=== PATIENT | male | born 1960 | race Caucasian/White ===

== ENCOUNTER 2017-07-25 22:47 | Inpatient (IN) | payer OTHER ==
[~2017-07-25] VITALS: Ht 177.8 cm; Wt 77.8 kg
[2017-07-26 01:00] VITALS: BP 119/76; PULSE 76; RESP 19
[2017-07-26 01:21] VITALS: Ht 177.8 cm; Wt 77.8 kg
[2017-07-26] MEDS ORDERED: ONDANSETRON 4 MG INJ IV PRN (02:30)
[2017-07-26] MEDS ORDERED: LORAZEPAM 2 MG INJ IV PRN ×2 (02:30)
[2017-07-26 02:39] VITALS: BP 119/76; RESP 18
[2017-07-26] MEDS: morphine 4 MG/ML VIAL IV PRN ×6 (02:42→23:49)
[2017-07-26] MEDS: DEXTROSE 5%-0.45% NACL 1,000 ML IV SCH ×4 (02:45→20:38)
[2017-07-26] MEDS: HYDROCODONE/APAP (5/325) TAB PO PRN ×2 (05:32→17:42)
[2017-07-26 05:47] LABS: BASOPHILS % 0.7 % (0.0-2.0); EOSINOPHILS # 0.3 10^3/ul (0.0-0.5); EOSINOPHILS % 4.1 % (0.0-7.0); HEMATOCRIT 38.1 % (42.0-52.0); HEMOGLOBIN 13.5 g/dl (14.0-18.0); LYMPHOCYTES % 32.5 % (15.0-51.0); MEAN CORPUSCULAR HEMOGLOBIN 33.7 pg (29.0-33.0); MEAN CORPUSCULAR HGB CONC 35.4 g/dl (32.0-37.0); MEAN PLATELET VOLUME 8.8 fl (7.4-10.4); MONOCYTE # 0.4 10^3/ul (0.3-0.9); MONOCYTES % 6.1 % (0.0-11.0); NEUTROPHIL # 3.5 10^3/ul (1.6-7.5); NEUTROPHILS % 56.4 % (39.0-77.0); PLATELET COUNT 101 10^3/UL (140-415); RED BLOOD COUNT 4.01 10^6/ul (4.70-6.10); RED CELL DISTRIBUTION WIDTH 12.1 % (11.5-14.5); WHITE BLOOD COUNT 6.1 10^3/ul (4.8-10.8)
--- NOTE | 2017-07-26 06:18 | HP ---
Date/Time of Note Date/Time of Note DATE: 07/26/17 TIME: 06:12 Assessment/Plan VTE Prophylaxis VTE Prophylaxis Intervention: SCD's Lines/Catheters IV Catheter Type (from Nrs): Saline Lock Assessment/Plan Assessment/Plan 1. Alcoholic pancreatitis -N.p.o. with IV fluid -Pain management -Check labs in am 2. History of alcohol abuse -Advised about abstinence -Social work consult to help with abstinence HPI/ROS Admit Date/Time Admit Date/Time Jul 26, 2017 at 01:15 Hx of Present Illness This is a 57-year-old male with a history of alcohol abuse who initially presented to [facility] complaining of abdominal pain. Patient was transferred to [facility] because of insurance reason. Patient has a history of alcohol abuse and he has been drinking almost on a daily basis. Last drink was 2 weeks ago, which mainly consisted of vodka. Abdominal pain is diffuse but mainly localized in the periumbilical area. At [facility], his blood alcohol level was elevated and had elevated lipase as well. PMH/Family/Social Social History Smoking Status: Current every day smoker Exam/Review of Systems Vital Signs Vitals Vital Signs Date Time Temp Pulse Resp B/P Pulse Ox O2 Delivery O2 Flow Rate FiO2 07/26/17 02:39 98.1 66 18 119/76 97 07/26/17 01:00 Room Air Exam Constitutional: alert, oriented, well developed Head: atraumatic, normocephalic Eyes: EOMI, PERRL Respiratory: clear to auscultation, normal air movement Cardiovascular: nl pulses, regular rate and rhythm Gastrointestinal: soft, tender Extremities: normal pulses Medications Medications Current Medications Multivitamins 10 ml/Thiamine HCl 100 mg/Folic Acid 1 mg/Sodium Chloride 1,011.2 ml @ 125 mls/ hr DAILY@09 IVPB ; Start 07/26/17 at 09:00 Dextrose/Sodium Chloride (D5-1/2ns) 1,000 ml @ 125 mls/hr Q8H IV Last administered on 07/26/17t 02:45; Admin Dose 125 MLS/HR; Start 07/26/17 at 02:30 Chlordiazepoxide (Librium) 75 mg TID PO ; Start 07/26/17 at 09:00 Lorazepam (Ativan) 2 mg Q1H PRN IV CONTROL WITHDRAWAL SYMPTOMS; Start 07/26/17 at 02:30 Lorazepam (Ativan) 1 mg Q3H PRN IV ANXIETY; Start 07/26/17 at 02:30 Ondansetron HCl (Zofran Inj) 4 mg Q6H PRN IV NAUSEA AND/OR VOMITING Last administered on 07/26/17 02:42; Admin Dose 4 MG; Start 07/26/17 at 02:30 Morphine Sulfate (morphine) 3 mg Q4H PRN IV PAIN Last administered on 02:42; Admin Dose 3 MG; Start 07/26/17 at 02:30 Acetaminophen/ Hydrocodone Bitart ([place] (5/325)) 1 tab Q6H PRN PO PAIN Last administered on 07/26/17 05:32; Admin Dose 1 TAB; Start 07/26/17 at 02:30 LA GONZALEZ MD Jul 26, 2017 06:18
[2017-07-26 06:37] LABS: ALBUMIN 3.8 g/dl (3.3-4.9); ALBUMIN/GLOBULIN RATIO 1.4; BILIRUBIN,INDIRECT 1.3 mg/dl (0-1.1); BILIRUBIN,TOTAL 1.3 mg/dl (0.2-1.3); CALCIUM 8.6 mg/dl (8.4-10.2); CREATININE 0.73 mg/dl (0.61-1.24); MAGNESIUM 1.8 mg/dl (1.7-2.5); PHOSPHORUS 3.5 mg/dl (2.5-4.9); POTASSIUM 3.5 mmol/L (3.5-5.1); TOTAL PROTEIN 6.5 g/dl (6.1-8.1)
[2017-07-26 07:48] VITALS: BP 153/88; RESP 18
[2017-07-26] MEDS: CHLORDIAZEPOXIDE 25 MG CAP PO SCH ×3 (08:33→20:38)
[2017-07-26] MEDS: MULTIVITAMINS 10 ML, THIAMINE 100 MG, FOLIC ACID 1 MG in SOD CHLORIDE 0.9% 1,000 ML IVPB SCH (11:01)
[2017-07-26 14:00] VITALS: BP 133/86; RESP 18
[2017-07-26 20:26] VITALS: BP 140/81; RESP 20
[2017-07-26 21:40] VITALS: BP 164/84; PULSE 119; RESP 20
[2017-07-27 02:53] VITALS: BP 135/81; RESP 18
[2017-07-27] MEDS: DEXTROSE 5%-0.45% NACL 1,000 ML IV SCH ×2 (05:01→17:39)
[2017-07-27] MEDS: morphine 4 MG/ML VIAL IV PRN ×4 (05:07→20:00)
[2017-07-27 06:25] LABS: ABNORMAL IP MESSAGE 1; BASOPHILS % 0.4 % (0.0-2.0); EOSINOPHILS # 0.2 10^3/ul (0.0-0.5); HEMATOCRIT 38.5 % (42.0-52.0); LYMPHOCYTES # 1.2 10^3/ul (0.8-2.9); LYMPHOCYTES % 24.4 % (15.0-51.0); MEAN CORPUSCULAR HEMOGLOBIN 34.6 pg (29.0-33.0); MEAN CORPUSCULAR HGB CONC 36.4 g/dl (32.0-37.0); MEAN CORPUSCULAR VOLUME 95.1 fl (82.0-101.0); MEAN PLATELET VOLUME 9.1 fl (7.4-10.4); MONOCYTE # 0.2 10^3/ul (0.3-0.9); NEUTROPHIL # 3.1 10^3/ul (1.6-7.5); PLATELET COUNT 89 10^3/UL (140-415); POSITIVE DIFF @See below; RED BLOOD COUNT 4.05 10^6/ul (4.70-6.10); RED CELL DISTRIBUTION WIDTH 11.9 % (11.5-14.5); WHITE BLOOD COUNT 4.8 10^3/ul (4.8-10.8)
[2017-07-27 06:46] LABS: CHOL/HDL RATIO 2.5 RATIO
[2017-07-27 06:56] LABS: CALCIUM 8.9 mg/dl (8.4-10.2); CREATININE 0.67 mg/dl (0.61-1.24); POTASSIUM 3.3 mmol/L (3.5-5.1)
[2017-07-27 07:45] VITALS: BP 124/85; RESP 16
[2017-07-27] MEDS: CHLORDIAZEPOXIDE 25 MG CAP PO SCH ×3 (09:11→20:43)
[2017-07-27] MEDS ORDERED: POTASSIUM CHLORIDE 20 MEQ in SOD CHLORIDE 0.9% 100 ML IVPB ONE (11:00)
[2017-07-27] MEDS: MULTIVITAMINS 10 ML, THIAMINE 100 MG, FOLIC ACID 1 MG in SOD CHLORIDE 0.9% 1,000 ML IVPB SCH (13:43)
[2017-07-27 14:00] VITALS: BP 122/81; RESP 18
--- NOTE | 2017-07-27 15:13 | PN ---
Date/Time of Note Date/Time of Note DATE: 07/27/17 TIME: 15:12 Assessment/Plan VTE Prophylaxis VTE Prophylaxis Intervention: SCD's Lines/Catheters IV Catheter Type (from Nrsg): Peripheral IV Assessment/Plan Assessment/Plan 1. Alcoholic pancreatitis - pt wants to eat, no lipase checked today AM, will start clear lquidis and advance as tolerated Pain control with tylenol, norco, morphine 2. History of alcohol abuse -Advised about abstinence -Social work consult to help with abstinence SCD dennys DVT prophylaxis Subjective 24 Hr Interval Summary Free Text/Dictation pain hattie,r wants to eat, no lipase checked today AM Exam/Review of Systems Vital Signs Vitals Vital Signs Date Time Temp Pulse Resp B/P Pulse Ox O2 Delivery O2 Flow Rate FiO2 07/27/17 07:45 98.4 80 16 124/85 96 07/26/17 01:00 Room Air Intake and Output 07/26/17 07/26/17 07/27/17 15:00 23:00 07:00 Intake Total 625 ml 1011.2 ml 1110 ml Output Total 950 ml 1850 ml Balance 625 ml 61.2 ml -740 ml Exam Constitutional: alert, oriented, well developed Head: atraumatic, normocephalic Eyes: EOMI, PERRL Respiratory: clear to auscultation, normal air movement Cardiovascular: nl pulses, regular rate and rhythm Gastrointestinal: soft, tender Extremities: normal pulses Results Result Diagram: 07/27/17 0549 07/27/17 0549 Results 24 hrs Laboratory Tests Test 07/27/17 05:49 White Blood Count 4.8 # Red Blood Count 4.05 L Hemoglobin 14.0 Hematocrit 38.5 L Mean Corpuscular Volume 95.1 Mean Corpuscular Hemoglobin 34.6 H Mean Corpuscular Hemoglobin Concent 36.4 Red Cell Distribution Width 11.9 Platelet Count 89 L Mean Platelet Volume 9.1 Neutrophils % 65.0 Lymphocytes % 24.4 Monocytes % 5.0 Eosinophils % 5.0 Basophils % 0.4 Nucleated Red Blood Cells % 0.0 Neutrophils # 3.1 Lymphocytes # 1.2 Monocytes # 0.2 L Eosinophils # 0.2 Basophils # 0.0 Nucleated Red Blood Cells # 0.0 Sodium Level 139 Potassium Level 3.3 L Chloride Level 103 Carbon Dioxide Level 28 Anion Gap 11 Blood Urea Nitrogen 7 Creatinine 0.67 Glucose Level 94 Calcium Level 8.9 Triglycerides Level 103 Cholesterol Level 208 H LDL Cholesterol, Calculated 104 HDL Cholesterol 83 H Cholesterol/HDL Ratio 2.5 Lipase 214 Medications Medications Current Medications Multivitamins 10 ml/Thiamine HCl 100 mg/Folic Acid 1 mg/Sodium Chloride 1,011.2 ml @ 125 mls/ hr DAILY@09 IVPB Last administered on 07/27/17 13:43; Admin Dose 125 MLS/HR; Start 07/26/17 at 09:00 Dextrose/Sodium Chloride (D5-1/2ns) 1,000 ml @ 125 mls/hr Q8H IV Last administered on 07/27/17 05:01; Admin Dose 125 MLS/HR; Start 07/26/17 at 02:30 Chlordiazepoxide (Librium) 75 mg TID PO Last administered on 07/27/17 13:42; Admin Dose 75 MG; Start 07/26/17 at 09:00 Lorazepam (Ativan) 2 mg Q1H PRN IV CONTROL WITHDRAWAL SYMPTOMS; Start 07/26/17 at 02:30 Lorazepam (Ativan) 1 mg Q3H PRN IV ANXIETY; Start 07/26/17 at 02:30 Ondansetron HCl (Zofran Inj) 4 mg Q6H PRN IV NAUSEA AND/OR VOMITING Last administered on 07/26/17 02:42; Admin Dose 4 MG; Start 07/26/17 at 02:30 Morphine Sulfate (morphine) 3 mg Q4H PRN IV PAIN Last administered on 09:13; Admin Dose 3 MG; Start 07/26/17 at 02:30 Acetaminophen/ Hydrocodone Bitart ([place] (5/325)) 1 tab Q6H PRN PO PAIN Last administered on 07/26/17 17:42; Admin Dose 1 TAB; Start 07/26/17 at 02:30 JUAN F NORRIS MD Jul 27, 2017 15:13
[2017-07-27] MEDS: HYDROCODONE/APAP (5/325) TAB PO PRN (16:46)
[2017-07-27 20:54] VITALS: BP 129/78; RESP 20
[2017-07-28] MEDS ORDERED: DOCU-144 PO (11:47)
--- NOTE | 2017-07-28 11:55 | PDOCDIS ---
Discharge Instructions DIAGNOSIS Discharge Diagnosis 1. Alcoholic hepatitis 2. Alcohol abuse HOME CARE INSTRUCTIONS: Special Diet: Soft diet FOLLOW UP/APPOINTMENTS Follow-up Plan 1. Follow up with your primary care provider in one week OTHER ORDERS: Other Orders: 1. Stop alcohol consumption LAURA STINSON Jul 28, 2017 11:55
[2017-07-28] MEDS ORDERED: CIPR500T4 PO (19:08)
[2017-07-28] MEDS ORDERED: ONDA4TAB14 PO (19:08)
[2017-07-28] MEDS ORDERED: HYDR-902 PO (19:08)
[2017-07-28] MEDS ORDERED: DIPH1TAB PO (19:09)
[2017-07-28] MEDS ORDERED: CHLORDIAZEPOXIDE 25 MG CAP PO SCH (21:00)
== END 2017-07-27 22:30 | disposition left against medical advice (07) | DRG 440 ==
LOC: MS2 07-26 01:15
PROVIDERS: ADMIT Internal Medicine; ATTEND Internal Medicine
DX: K85.20 Alcohol induced acute pancreatitis without necrosis or infection (principal); I10 Essential (primary) hypertension; F17.210 Nicotine dependence, cigarettes, uncomplicated; F10.20 Alcohol dependence, uncomplicated; F41.9 Anxiety disorder, unspecified; J44.9 Chronic obstructive pulmonary disease, unspecified
CPT/HCPCS: 80048; 80053; 80061; 83036; 83690; 83735; 84100; 85025; J2270; J2405; J3411; J3480; J7030; J7042

== ENCOUNTER 2017-07-28 16:12 | Emergency (ER) | payer OTHER ==
[~2017-07-28] VITALS: Ht 172.7 cm; Wt 75.0 kg
[~2017-07-28 16:12] MED LIST: DOCU-144 PO
[2017-07-28 16:18] VITALS: Ht 172.7 cm; Wt 75.0 kg
[2017-07-28] MEDS ORDERED: ONDANSETRON 4 MG INJ IV STA ×2 (16:55→19:10)
[2017-07-28] MEDS ORDERED: SOD CHLORIDE 0.9% 1,000 ML IV STA (16:55)
[2017-07-28] MEDS ORDERED: HYDROmorphONE 1 MG/ML SYG IV STA ×2 (16:55→19:10)
[2017-07-28] MEDS ORDERED: ONDANSETRON (ODT) 4 MG TAB ODT ONE (17:08)
[2017-07-28 17:22] LABS: HEMATOCRIT 41.5 % (42.0-52.0); HEMOGLOBIN 15.3 g/dl (14.0-18.0); MEAN CORPUSCULAR HEMOGLOBIN 34.7 pg (29.0-33.0); MEAN CORPUSCULAR HGB CONC 36.9 g/dl (32.0-37.0); MEAN CORPUSCULAR VOLUME 94.1 fl (82.0-101.0); MEAN PLATELET VOLUME 9.3 fl (7.4-10.4); PLATELET COUNT 108 10^3/UL (140-415); RED BLOOD COUNT 4.41 10^6/ul (4.70-6.10); WHITE BLOOD COUNT 6.2 10^3/ul (4.8-10.8)
--- NOTE | 2017-07-28 17:26 | ERA ---
ER Documentation Chief Complaint Date/Time DATE: 07/28/17 TIME: 17:21 Chief Complaint SOB , ABDOMINAL PAIN 2 DAYS, HX OF ASTHMA HPI This is a 57-year-old male who is admitted At [facility] for alcoholic pancreatitis. The patient left AMA this morning. He said he went home and the pain got worse in his abdomen he started having vomiting and diarrhea. He actually says she has had vomiting and diarrhea for the past 2 days and has had only morphine for pain control that is not helping. He says his pain is located in the diffuse lower abdominal region more on the left. He has no bloody diarrhea or blood in his vomit. The patient says he is in so much pain that he fell and sustained a laceration to his right wrist. There is no syncope.This occurred as he was leaving AMA from the hospital this morning at [place]. They brought him back into the emergency room where he has laceration stitched and he left from there ROS All systems reviewed and are negative except as per history of present illness. Medications Home Meds Active Scripts Diphenoxylate HCl/Atropine (Lomotil 2.5-0.025 mg Tablet) 1 Each Tablet, 1 TAB PO QID Y for DIARRHEA, #10 TAB Prov:SUDHIR DINERO DO 07/28/17 Ondansetron (Ondansetron Odt) 4 Mg Tab.rapdis, 4 MG PO Q6H Y for NAUSEA AND/OR VOMITING, #10 TAB Prov:SUDHIR DINERO DO 07/28/17 Ciprofloxacin Hcl* (Ciprofloxacin Hcl*) 500 Mg Tablet, 500 MG PO BID for 7 Days , TAB Prov:SUDHIR DINERO DO 07/28/17 Hydrocodone/Acetaminophen ([place] 10-325 Tablet) 1 Each Tablet, 1 TAB PO Q6H Y for PAIN, #20 TAB Prov:SUDHIR DINERO DO 07/28/17 Discontinued Scripts Docusate Sodium* (Colace*) 100 Mg Capsule, 100 MG PO BID Y for CONSTIPATION, # 30 CAP Prov:LAURA STINSON 07/28/17 Allergies Allergies: Coded Allergies: No Known Drug Allergies (Verified Allergy, Unknown, 07/28/17) PMhx/Soc History of Surgery: No Anesthesia Reaction: No Hx Neurological Disorder: No Hx Respiratory Disorders: Yes (ASTHMA, COPD) Hx Cardiac Disorders: No Hx Psychiatric Problems: Yes (ANXIETY) Hx Miscellaneous Medical Probl: No Hx Alcohol Use: Yes Hx Substance Use: No Hx Tobacco Use: Yes FmHx Family History: No coronary disease Physical Exam Vitals Vital Signs Date Time Temp Pulse Resp B/P Pulse Ox O2 Delivery O2 Flow Rate FiO2 07/28/17 18:30 88 18 128/73 100 Room Air 07/28/17 16:18 98.9 100 20 123/73 100 Physical Exam Const: Well-developed, well-nourished Head: Atraumatic, normocephalic Eyes: Normal Conjunctiva, PERRLA, EOMI, normal sclera, no nystagmus ENT: Normal External Ears, Nose and Mouth, moist mucus membranes. Neck: Full range of motion. No meningismus, no lymphadenopathy. Resp: Clear to auscultation bilaterally, no wheezing, rhonchi, rales Cardio: Regular rate and rhythm, no murmurs, S1 S2 present Abd: Soft, bilateral lower quadrant tenderness moderate in nature non distended. Normal bowel sounds, no guarding or rebound, no pulsitile abdominal masses or bruits Skin: No petechiae or rashes, no ecchymosis , no maculopapular rash Back: No midline or flank tenderness Ext: No cyanosis, or edema, FROM x 4, normal inspection, neurovascularly intact x 4, the right wrist is a V-shaped laceration has been sutured and closed no active bleeding Neur: Awake and alert, STR 5/5 x 4, sensation intact x 4, no focal findings, cerebellum intact Psych: Normal Mood and Affect Result Diagram: 07/28/17 1700 07/28/17 1700 Results 24 hrs Laboratory Tests Test 07/28/17 17:00 White Blood Count 6.210^3/ul Red Blood Count 4.4110^6/ul Hemoglobin 15.3g/dl Hematocrit 41.5% Mean Corpuscular Volume 94.1fl Mean Corpuscular Hemoglobin 34.7pg Mean Corpuscular Hemoglobin Concent 36.9g/dl Red Cell Distribution Width 12.0% Platelet Count 81086^3/UL Mean Platelet Volume 9.3fl Neutrophils % % Lymphocytes % % Monocytes % % Eosinophils % % Basophils % % Nucleated Red Blood Cells % 0.0/100WBC Neutrophils # 10^3/ul Lymphocytes # 10^3/ul Monocytes # 10^3/ul Eosinophils # 10^3/ul Basophils # 10^3/ul Nucleated Red Blood Cells # 10^3/ul Sodium Level 139mmol/L Potassium Level 4.1mmol/L Chloride Level 103mmol/L Carbon Dioxide Level 25mmol/L Anion Gap 15 Blood Urea Nitrogen 9mg/dl Creatinine 0.70mg/dl Glucose Level 109mg/dl Calcium Level 9.8mg/dl Total Bilirubin 0.8mg/dl Direct Bilirubin 0.00mg/dl Indirect Bilirubin 0.8mg/dl Aspartate Amino Transf (AST/SGOT) 183IU/L Alanine Aminotransferase (ALT/SGPT) 122IU/L Alkaline Phosphatase 122IU/L Total Protein 7.6g/dl Albumin 4.3g/dl Globulin 3.30g/dl Albumin/Globulin Ratio 1.30 Lipase 118U/L Ethyl Alcohol Level < 10.0mg/dl Current Medications Medications (Trade) Dose Ordered Sig/Ronaldo Route PRN Reason Start Time Stop Time Status Last Admin Dose Admin Sodium Chloride (NS) 1,000 ml @ 1,000 mls/hr Q1H STAT IV 07/28/17 16:55 07/28/17 17:54 DC 07/28/17 17:35 Hydromorphone HCl (Dilaudid) 1 mg ONCE STAT IV 07/28/17 16:55 07/28/17 16:56 DC 07/28/17 17:35 Ondansetron HCl (Zofran Inj) 4 mg ONCE STAT IV 07/28/17 16:55 07/28/17 16:56 DC 07/28/17 17:35 Ondansetron HCl (Zofran Odt) 4 mg STK-MED ONCE ODT 07/28/17 17:08 07/28/17 17:09 DC Iohexol 150 ml 150 ml STK-MED ONCE .ROUTE 07/28/17 17:57 07/28/17 17:58 DC 07/28/17 18:27 Sodium Chloride (NS) 100 ml @ ud STK-MED ONCE .ROUTE 07/28/17 17:57 07/28/17 17:58 DC 07/28/17 18:27 Procedures/MDM PROCEDURE: XR Chest. CLINICAL INDICATION: Loss of consciousness, shortness of breath TECHNIQUE: Single frontal chest x-ray. COMPARISON: 07/04/2014 FINDINGS: The lungs are adequately expanded and clear. There is no focal consolidation, pleural effusion, or pneumothorax. The heart and mediastinal contours are unremarkable. Bones are unremarkable. There are no acute fractures. RPTAT: ZZ IMPRESSION: No acute cardiopulmonary abnormality. .Tuyte Monzon MD, Date Time Electronically viewed and signed by .Tuyet Monzon MD, on 07/28/2017 18: 52 .T/ CC: SUDHIR DINERO DO PROCEDURE: CT Abdomen and Pelvis with contrast. CLINICAL INDICATION: Abdominal pain with shortness of breath for 2 days TECHNIQUE: CT scan of the abdomen and pelvis with contrast was performed. The patient was scanned following the uncomplicated intravenous administration of 90 cc of Omnipaque 300. Coronal and sagittal reformatted images were obtained from the axial source images. Images were reviewed on a high- resolution PACS workstation. CTDI 837 mGy, DLP 14 mGy-cm One or more of the following dose reduction techniques were used: Automated exposure control Adjustment of the mA and/or kV according to patient size. Use of iterative reconstruction technique. COMPARISON: Several prior studies, most recent on 07/01/2014 FINDINGS: There is minimal, dependent atelectasis at the lung bases. Otherwise, the lung bases are clear, without mass or pleural effusion. The heart size is normal. The aorta and its branches are normal in size and caliber with minimal atherosclerotic calcifications. There is less prominence of the fatty infiltration of the liver compared to the prior study. There is a 1.5 cm hypodense subcapsular lesion within the inferior left lobe of liver of slightly increased attenuation which may correspond with a hemangioma. This was also seen on the prior study from 05/11/2014. The portal veins, splenic vein and superior mesenteric vein are unremarkable. The gallbladder is slightly distended although unremarkable, without cholelithiasis. The spleen, pancreas, and adrenal glands are unremarkable. The kidneys are unremarkable and demonstrate normal contrast enhancement. There are no renal calculi or hydronephrosis. The ureters are normal in course and caliber, without urolithiasis. The distal esophagus is unremarkable. The stomach is partially distended with slight wall thickening although it is partially decompressed. There is no evidence of obstruction within the gastrointestinal tract. The appendix is visualized and is normal. There is no free intraperitoneal fluid or pneumoperitoneum. No mesenteric or retroperitoneal lymphadenopathy is present. There is no pelvic lymphadenopathy. The bladder is partially distended and grossly unremarkable. The prostate is mildly prominent with a few calcifications. The seminal vesicles are unremarkable. No pelvic free fluid. There are no acute fractures. Old right posterior 10th rib fracture is noted. Multilevel mild degenerative disc disease is present within the lumbar spine. There are bilateral L5 pars defects with grade 1 anterolisthesis at L5-S1. RPTAT: ZZ IMPRESSION: 1. No acute intra-abdominal abnormality. No mass, lymphadenopathy, or focal acute inflammatory process is identified. 2. Decreased fatty infiltration of the liver. 3. Bilateral L5 pars defects with grade 1 anterolisthesis at L5-S1. .Tuyet Monzon MD, MD Date Time Electronically viewed and signed by .Tuyet Monzon MD, MD on 07/28/2017 18: 51 .T/ CC: SUDHIR DINERO DO No acute evidence of any pathology on CT scan and blood work looks good. Discharged home with nausea vomiting diarrhea control is worse pain. He may have some type of gastroenteritis or bad food exposure or risk of malingering for pain meds Departure Diagnosis: Primary Impression: Abdominal pain Qualified Code: R10.10 - Pain of upper abdomen Additional Impression: Vomiting and diarrhea Condition: Stable SUDHIR DINERO DO Jul 28, 2017 17:26
[2017-07-28 17:30] LABS: ALBUMIN 4.3 g/dl (3.3-4.9); ALBUMIN/GLOBULIN RATIO 1.3; BILIRUBIN,INDIRECT 0.8 mg/dl (0-1.1); BILIRUBIN,TOTAL 0.8 mg/dl (0.2-1.3); CALCIUM 9.8 mg/dl (8.4-10.2); CREATININE 0.7 mg/dl (0.61-1.24); POTASSIUM 4.1 mmol/L (3.5-5.1); TOTAL PROTEIN 7.6 g/dl (6.1-8.1)
[2017-07-28] MEDS ORDERED: SOD CHLORIDE 0.9% 100 ML ONE (17:57)
[2017-07-28] MEDS ORDERED: IOHEXOL 300MG/ML 150 ML BTL ONE (17:57)
[2017-07-28 18:23] LABS: POSITIVE DIFF N
--- NOTE | 2017-07-28 18:51 | RADRPT ---
PROCEDURE: CT Abdomen and Pelvis with contrast. CLINICAL INDICATION: Abdominal pain with shortness of breath for 2 days TECHNIQUE: CT scan of the abdomen and pelvis with contrast was performed. The patient was scanned following the uncomplicated intravenous administration of 90 cc of Omnipaque 300. Coronal and sagi ttal reformatted images were obtained from the axial source images. Images were reviewed on a high-r Triptrotting PACS workstation. CTDI 837 mGy, DLP 14 mGy-cm One or more of the following dose reduction techniques were used: Automated exposure control Adjustment of the mA and/or kV according to patient size. Use of iterative reconstruction technique. COMPARISON: Several prior studies, most recent on 07/01/2014 FINDINGS: There is minimal, dependent atelectasis at the lung bases. Otherwise, the lung bases are clear, with out mass or pleural effusion. The heart size is normal. The aorta and its branches are normal in size and caliber with minimal atherosclerotic calcification s. There is less prominence of the fatty infiltration of the liver compared to the prior study. There i s a 1.5 cm hypodense subcapsular lesion within the inferior left lobe of liver of slightly increased attenuation which may correspond with a hemangioma. This was also seen on the prior study from 04/14. The portal veins, splenic vein and superior mesenteric vein are unremarkable. The gallbladde r is slightly distended although unremarkable, without cholelithiasis. The spleen, pancreas, and adrenal glands are unremarkable. The kidneys are unremarkable and demonstrate normal contrast enhancement. There are no renal calcul i or hydronephrosis. The ureters are normal in course and caliber, without urolithiasis. The distal esophagus is unremarkable. The stomach is partially distended with slight wall thickenin g although it is partially decompressed. There is no evidence of obstruction within the gastrointest inal tract. The appendix is visualized and is normal. There is no free intraperitoneal fluid or pne umoperitoneum. No mesenteric or retroperitoneal lymphadenopathy is present. There is no pelvic lymphadenopathy. The bladder is partially distended and grossly unremarkable. The prostate is mildly prominent with a few calcifications. The seminal vesicles are unremarkable. No pelvic free fluid. There are no acute fractures. Old right posterior 10th rib fracture is noted. Multilevel mild degene rative disc disease is present within the lumbar spine. There are bilateral L5 pars defects with gra de 1 anterolisthesis at L5-S1. RPTAT: ZZ IMPRESSION: 1. No acute intra-abdominal abnormality. No mass, lymphadenopathy, or focal acute inflammatory pro cess is identified. 2. Decreased fatty infiltration of the liver. 3. Bilateral L5 pars defects with grade 1 anterolisthesis at L5-S1. .Tuyet Monzon MD, MD Date Time Electronically viewed and signed by .Tuyet Monzon MD, on 07/28/2017 18:51 .T/
--- NOTE | 2017-07-28 18:52 | RADRPT ---
PROCEDURE: XR Chest. CLINICAL INDICATION: Loss of consciousness, shortness of breath TECHNIQUE: Single frontal chest x-ray. COMPARISON: 07/04/2014 FINDINGS: The lungs are adequately expanded and clear. There is no focal consolidation, pleural effusion, or pneumothorax. The heart and mediastinal contours are unremarkable. Bones are unremarkable. There a re no acute fractures. RPTAT: ZZ IMPRESSION: No acute cardiopulmonary abnormality. .Tuyet Monzon MD, MD Date Time Electronically viewed and signed by .Tuyet Monzon MD, on 07/28/2017 18:52 .T/
[2017-07-28] MEDS ORDERED: CIPR500T4 PO (19:08)
[2017-07-28] MEDS ORDERED: ONDA4TAB14 PO (19:08)
[2017-07-28] MEDS ORDERED: HYDR-902 PO (19:08)
[2017-07-28] MEDS ORDERED: DIPH1TAB PO (19:09)
[2017-07-28 19:24] VITALS: BP 128/73; PULSE 89; RESP 18
== END 2017-07-28 19:28 | disposition home or self-care (01) ==
LOC: E/R 16:12
DX: R10.84 Generalized abdominal pain (principal); R11.10 Vomiting, unspecified; R19.7 Diarrhea, unspecified; J44.0 Chronic obstructive pulmonary disease with (acute) lower respiratory infection; Z87.891 Personal history of nicotine dependence
CPT/HCPCS: 36415; 71010; 74177; 80053; 80306; 83690; 85025; 96374; 96375; J1170; J2405; J7030; Q9967; Z7502; Z7610

== ENCOUNTER 2017-07-31 02:51 | Inpatient (IN) | payer OTHER ==
[~2017-07-31] VITALS: Ht 177.8 cm; Wt 81.3 kg
[2017-07-31] VITALS (10 sets, daily range): BP systolic 107–127; BP diastolic 64–78; PULSE 75–90; RESP 16–20; Ht 177.8 cm; Wt 81.3 kg
[~2017-07-31 02:51] MED LIST changes: +CIPR500T4 PO; +DIPH1TAB PO; -DOCU-144 PO; +HYDR-902 PO; +ONDA4TAB14 PO
[2017-07-31] MEDS ORDERED: SOD CHLORIDE 0.9% 1,000 ML IV SCH (04:06)
[2017-07-31] MEDS ORDERED: ONDANSETRON 4 MG INJ IV PRN (04:30)
[2017-07-31] MEDS ORDERED: VANCOMYCIN IV PER PHARMACY XX SCH (04:30)
[2017-07-31] MEDS ORDERED: NACL 0.9% 3 ML SYG IV SCH (04:30)
[2017-07-31] MEDS ORDERED: ACETAMINOPHEN 325 MG TAB PO PRN (04:30)
[2017-07-31] MEDS: CHLORDIAZEPOXIDE 25 MG CAP PO SCH ×4 (04:57→21:42)
[2017-07-31] MEDS ORDERED: VANCOMYCIN 1.5 GM in SOD CHLORIDE 0.9% 250 ML IVPB SCH (06:00)
[2017-07-31 08:24] LABS: BASOPHILS % 0.5 % (0.0-2.0); EOSINOPHILS # 0.2 10^3/ul (0.0-0.5); EOSINOPHILS % 2.8 % (0.0-7.0); HEMATOCRIT 35.2 % (42.0-52.0); HEMOGLOBIN 12.6 g/dl (14.0-18.0); LYMPHOCYTES # 1.7 10^3/ul (0.8-2.9); LYMPHOCYTES % 27.8 % (15.0-51.0); MEAN CORPUSCULAR HGB CONC 35.8 g/dl (32.0-37.0); MEAN CORPUSCULAR VOLUME 94.9 fl (82.0-101.0); MEAN PLATELET VOLUME 9.2 fl (7.4-10.4); MONOCYTE # 0.8 10^3/ul (0.3-0.9); MONOCYTES % 13.1 % (0.0-11.0); NEUTROPHIL # 3.4 10^3/ul (1.6-7.5); NEUTROPHILS % 55.6 % (39.0-77.0); PLATELET COUNT 111 10^3/UL (140-415); RED BLOOD COUNT 3.71 10^6/ul (4.70-6.10); RED CELL DISTRIBUTION WIDTH 12.5 % (11.5-14.5); WHITE BLOOD COUNT 6.1 10^3/ul (4.8-10.8)
[2017-07-31 08:48] LABS: ALANINE AMINOTRANSFERASE 93 IU/L (13-69); ALBUMIN 3.8 g/dl (3.3-4.9); ALBUMIN/GLOBULIN RATIO 1.26; ALKALINE PHOSPHATASE 98 IU/L (42-121); ANION GAP 12 (8-16); ASPARTATE AMINO TRANSFERASE 93 IU/L (15-46); BILIRUBIN,INDIRECT 0.4 mg/dl (0-1.1); BILIRUBIN,TOTAL 0.4 mg/dl (0.2-1.3); BLOOD UREA NITROGEN 10 mg/dl (7-20); CALCIUM 8.9 mg/dl (8.4-10.2); CARBON DIOXIDE 28 mmol/L (21-31); CHLORIDE 103 mmol/L (97-110); CREATININE 0.62 mg/dl (0.61-1.24); GLUCOSE 77 mg/dl (70-220); MAGNESIUM 1.9 mg/dl (1.7-2.5); POTASSIUM 3.4 mmol/L (3.5-5.1); SODIUM 140 mmol/L (135-144); TOTAL PROTEIN 6.8 g/dl (6.1-8.1)
[2017-07-31 08:54] LABS: ETHANOL < 10.0 mg/dl
[2017-07-31] MEDS ORDERED: FAMOTIDINE 20 MG INJ IV SCH (09:00)
[2017-07-31] MEDS ORDERED: MULTIVITAMINS 10 ML, THIAMINE 100 MG, FOLIC ACID 1 MG in SOD CHLORIDE 0.9% 1,000 ML IVPB SCH (09:00)
[2017-07-31] MEDS: morphine 2 MG INJ IV PRN ×4 (09:07→21:42)
--- NOTE | 2017-07-31 09:13 | HP ---
Date/Time of Note Date/Time of Note DATE: 07/31/17 TIME: 08:59 Assessment/Plan VTE Prophylaxis VTE Prophylaxis Intervention: SCD's Lines/Catheters IV Catheter Type (from [facility]): Saline Lock Urinary Cath still in place: No Assessment/Plan Chief Complaint/Hosp Course This is a 57-year-old male being admitted to the telemetry floor for: #1 alcohol withdrawal: We will check a blood alcohol level, banana bag, Librium taper, as needed Ativan. Check lipase as patient has a history of pancreatitis. #2 right upper extremity wound: Patient had a previous laceration of his right arm which was subsequently treated with sutures during previous admission. patient does report pain in the area. There does not appear to be any erythema of the area however there does appear to be some darkening of the incision which could be normal healing however will obtain wound care consult and surgery consult to further assess. Will put patient on vancomycin IV at this time. #3 BPH: Patient has a history of BPH over is currently not on any medications. Likely will consider restarting patient on Flomax and finasteride upon discharge. Will check a PSA level. #4 Behavioral disorder: Patient has history of depression and anxiety: We will need to confirm with the patient his home medications. #5 asthma: Patient reports Spiriva inhaler, will continue. #7 DVT GI prophylaxis: SCDs, acid kristan Further treatment strategy will be implemented as per the clinical course Problems: HPI/ROS Admit Date/Time Admit Date/Time Jul 31, 2017 at 03:06 Hx of Present Illness Chief complaint: Alcohol withdrawal symptoms This is a 57-year-old male being transferred from nursing facility for symptoms of alcohol withdrawal. Patient reports the last drink he had was approximately 3-4 days ago. He was experiencing some abdominal pain and nausea. Patient was admitted a few days ago in the hospital for pancreatitis, alcohol abuse. Current time patient denies any suicidal ideation or homicidal ideation. He denies any auditory or visual hallucinations. Allergies: NKDA Medications: See JAN ROS Const: As per HPI Eyes : No pain discharge or redness or change in visual acuity ENT: No pain, sore throat, congestion, congestion, dysphagia or discharge Respiratory: No shortness of breath, cough, sputum, wheezing, or pleuritic pain Cardiovascular: No chest pain, palpitation, PND, or edema GI : As per HPI Genitourinary: No dysuria, hematuria, flank pain , discharge or CVA tenderness Musculoskeletal: No joint pain, back pain, neck pain, restricted range of motion in neck or joints Skin: No rash, bruising or hives Neuro: No headache, dizziness, syncope, seizure, focal weakness Endocrine: No polyuria, polydipsia, temperature intolerance Psych: No hallucination, depression, anxiety or suicidal ideation PMH/Family/Social Past Medical History Depression, anxiety, asthma, alcohol abuse Past Surgical History Right forearm laceration repair with sutures Family History Significant Family History: no pertinent family hx Social History Alcohol Use: heavy Smoking Status: Current every day smoker (1 pack per day 40 years) Exam/Review of Systems Vital Signs Vitals Vital Signs Date Time Temp Pulse Resp B/P Pulse Ox O2 Delivery O2 Flow Rate FiO2 07/31/17 08:00 81 07/31/17 07:29 98.5 20 118/77 96 Exam Exam General: Patient is lethargic however he is easily arousable and answers questions appropriately. HEENT: Atraumatic, normocephalic. The pupils are equal, round and reactive. Extraocular motor are intact Neck: Supple with full range of motion. No rigidity or meningismus Chest: Nontender Lungs: Clear to auscultation bilaterally no crackles rales or wheezing Heart: Normal S1-S2, Regular rhythm and rate. No overt murmurs appreciated Abdomen: Soft, mild tenderness to palpation at the epigastric region. Extremities: Normal to inspection, no edema no cyanosis Neurologic: Lethargic, but easily arousable. Alert and oriented 3. Cranial nerves II through XII intact. No focal deficits on neurological exam. No homicidal suicidal ideation. Labs Result Diagram: 07/31/17 0706 07/31/17 0706 Medications Medications Current Medications Sodium Chloride (NS) 1,000 ml @ 80 mls/hr [id number] IV Last administered on 07/31t 04:57; Admin Dose 80 MLS/HR; Start 07/31/17 at 04:06 Ondansetron HCl (Zofran Inj) 4 mg Q6H PRN IV NAUSEA AND/OR VOMITING; Start at 04:30 Acetaminophen (Tylenol Tab) 650 mg Q6H PRN PO PAIN LEVEL 1-3 OR FEVER; Start at 04:30 Famotidine (Pepcid Iv) 20 mg Q12 IV ; Start 07/31/17 at 09:00 Chlordiazepoxide (Librium) 50 mg TID PO Last administered on 07/31/17 04:57; Admin Dose 50 MG; Start 07/31/17 at 05:00; Stop 08/01/17 at 04:59 Chlordiazepoxide (Librium) 25 mg QID PO ; Start 08/01/17 at 05:00; Stop at 04:59 Chlordiazepoxide 25 mg 25 mg TID PO ; Start 08/02/17 at 05:00; Stop 08/03/17 at 04:59 Multivitamins/ Thiamine HCl/ Folic Acid/Sodium Chloride (Mvi Adult/ Vitamin B1/ Folic Acid/NS) 1,011.2 ml @ 125 mls/ hr DAILY@09 IVPB ; Start 07/31/17 at 09:00 Lorazepam (Ativan) 1 mg Q2 PRN IV AGITATION/ANXIETY; Start 07/31/17 at 04:30 Morphine Sulfate 2 mg 2 mg Q4H PRN IV PAIN LEVEL 6-10; Start 07/31/17 at 04:30 Vancomycin HCl/ Sodium Chloride (Vancocin/NS) 250 ml @ 83.333 mls/ hr ONCE IVPB Last administered on 07/31/17 06:05; Admin Dose 83.333 MLS/HR; Start at 06:00; Stop 07/31/17 at 08:59 SHELBI LOPEZ Jul 31, 2017 09:11
[2017-07-31] MEDS: TIOTROPIUM 18 MCG CAPSULE INHA DEV INH SCH (13:08)
[2017-07-31] MEDS ORDERED: POTASSIUM CHLORIDE (SR) 20 MEQ TAB PO STA (13:21)
--- NOTE | 2017-07-31 13:25 | PN ---
Date/Time of Note Date/Time of Note DATE: 07/31/17 TIME: 13:21 Assessment/Plan VTE Prophylaxis VTE Prophylaxis Intervention: SCD's Lines/Catheters IV [facility] Type (from [facility] Saline Lock Urinary Cath still in place: No Assessment/Plan Assessment/Plan 57 yo M with known h/o EtOHism, previous episodes of alcoholic pancreatitis admitted for detox. PLAN cont librium taper, PRN ativan MVI/thiamine/folate check lipase, IVFs, PO as tolerated for UE wound sp suture closure, open to air. sutures do not yet appear ready for removal ss cs for EtOHism Subjective 24 Hr Interval Summary Free Text/Dictation Pt states last drink was 3-4 days ago. Denies h/o withdrawal seizures Exam/Review of Systems Vital Signs Vitals Vital Signs Date Time Temp Pulse Resp B/P Pulse Ox O2 Delivery O2 Flow Rate FiO2 07/31/17 12:00 79 07/31/17 11:19 97.8 20 107/69 96 Exam nad +RUE with 2 linear surgically stitched incisions 4 cm on forearm abd with mild epigastric ttp no mrg lungs clear no rashes labs reviewed Results Result Diagram: 07/31/17 0706 07/31/17 0706 Results 24 hrs Laboratory Tests Test 07/31/17 07:06 White Blood Count 6.1 Red Blood Count 3.71 L Hemoglobin 12.6 L Hematocrit 35.2 L Mean Corpuscular Volume 94.9 Mean Corpuscular Hemoglobin 34.0 H Mean Corpuscular Hemoglobin Concent 35.8 Red Cell Distribution Width 12.5 Platelet Count 111 L Mean Platelet Volume 9.2 Neutrophils % 55.6 Lymphocytes % 27.8 Monocytes % 13.1 H Eosinophils % 2.8 Basophils % 0.5 Nucleated Red Blood Cells % 0.0 Neutrophils # 3.4 Lymphocytes # 1.7 Monocytes # 0.8 Eosinophils # 0.2 Basophils # 0.0 Nucleated Red Blood Cells # 0.0 Sodium Level 140 Potassium Level 3.4 L Chloride Level 103 Carbon Dioxide Level 28 Anion Gap 12 Blood Urea Nitrogen 10 Creatinine 0.62 Glucose Level 77 Calcium Level 8.9 Magnesium Level 1.9 Total Bilirubin 0.4 Direct Bilirubin 0.00 Indirect Bilirubin 0.4 Aspartate Amino Transf (AST/SGOT) 93 H Alanine Aminotransferase (ALT/SGPT) 93 H Alkaline Phosphatase 98 Total Protein 6.8 Albumin 3.8 Globulin 3.00 Albumin/Globulin Ratio 1.26 Ethyl Alcohol Level < 10.0 Medications Medications Current Medications Ondansetron HCl (Zofran Inj) 4 mg Q6H PRN IV NAUSEA AND/OR VOMITING Last administered on 07/31/17 09:07; Admin Dose 4 MG; Start 07/31/17 at 04:30 Acetaminophen (Tylenol Tab) 650 mg Q6H PRN PO PAIN LEVEL 1-3 OR FEVER; Start at 04:30 Chlordiazepoxide (Librium) 50 mg TID PO Last administered on 07/31/17 13:09; Admin Dose 50 MG; Start 07/31/17 at 05:00; Stop 08/01/17 at 04:59 Chlordiazepoxide (Librium) 25 mg QID PO ; Start 08/01/17 at 05:00; Stop at 04:59 Chlordiazepoxide (Librium) 25 mg TID PO ; Start 08/02/17 at 05:00; Stop at 04:59 Lorazepam (Ativan) 1 mg Q2 PRN IV AGITATION/ANXIETY; Start 07/31/17 at 04:30 Morphine Sulfate (morphine) 2 mg Q4H PRN IV PAIN LEVEL 6-10 Last administered on 07/31/17 13:10; Admin Dose 2 MG; Start 07/31/17 at 04:30 Tiotropium [place] (Spiriva) 1 inh DAILY INH Last administered on 07/31/17 13: 08; Admin Dose 1 INH; Start 07/31/17 at 10:30 Miscellaneous Information (*Rx Drug Level Order Reminder*) VANCO TROUGH @ 1, 700 ON... ONCE ONCE XX ; Start 08/01/17 at 17:00; Stop 08/01/17 at 17:01 Acetaminophen/ Hydrocodone Bitart 1 tab 1 tab Q6H PRN PO pain; Start 07/31/17 at 13:00 Sodium Chloride (NS) 1,000 ml @ 80 mls/hr [id number] IV ; Start 07/31/17 at 13:30 ; Status ELIESER RAINEY MD Jul 31, 2017 13:25
[2017-07-31] MEDS: SOD CHLORIDE 0.9% 1,000 ML IV SCH (13:30)
[2017-07-31] MEDS: MULTIVITAMINS THERAPEUTIC TAB PO SCH (13:49)
[2017-07-31] MEDS: THIAMINE 100 MG TAB PO SCH (13:50)
[2017-07-31] MEDS: FOLIC ACID 1 MG TAB PO SCH (13:50)
[2017-07-31 14:13] LABS: CANNABINOIDS Negative (NEGATIVE)
[2017-07-31 14:15] LABS: BARBITURATES Negative (NEGATIVE); BENZODIAZEPINES Positive (NEGATIVE); COCAINE Negative (NEGATIVE); OPIATES Positive (NEGATIVE)
[2017-07-31] MEDS: LORAZEPAM 2 MG INJ IV PRN (15:00)
[2017-07-31] MEDS: HYDROCODONE/APAP (5/325) TAB PO PRN (16:38)
[2017-07-31] MEDS ORDERED: VANCOMYCIN 1.25 GM in SOD CHLORIDE 0.9% 250 ML IVPB SCH (18:00)
[2017-08-01 00:15] VITALS: PULSE 69
[2017-08-01] MEDS: HYDROCODONE/APAP (5/325) TAB PO PRN (00:20)
[2017-08-01 00:28] VITALS: BP 108/66; RESP 20
[2017-08-01] MEDS: morphine 2 MG INJ IV PRN (01:43)
[2017-08-01] MEDS: SOD CHLORIDE 0.9% 1,000 ML IV SCH ×2 (02:00→10:03)
[2017-08-01] MEDS: LORAZEPAM 2 MG INJ IV PRN (03:23)
[2017-08-01 04:17] VITALS: PULSE 86
[2017-08-01 04:23] VITALS: BP 107/64; RESP 16
[2017-08-01] MEDS: CHLORDIAZEPOXIDE 25 MG CAP PO SCH ×2 (05:09→10:03)
[2017-08-01 07:26] VITALS: BP 127/77; RESP 20
[2017-08-01 07:26] LABS: BASOPHILS % 0.6 % (0.0-2.0); EOSINOPHILS # 0.2 10^3/ul (0.0-0.5); HEMATOCRIT 35.9 % (42.0-52.0); HEMOGLOBIN 12.6 g/dl (14.0-18.0); LYMPHOCYTES # 1.8 10^3/ul (0.8-2.9); LYMPHOCYTES % 36.4 % (15.0-51.0); MEAN CORPUSCULAR HEMOGLOBIN 34.3 pg (29.0-33.0); MEAN CORPUSCULAR HGB CONC 35.1 g/dl (32.0-37.0); MEAN CORPUSCULAR VOLUME 97.8 fl (82.0-101.0); MONOCYTE # 0.7 10^3/ul (0.3-0.9); NEUTROPHIL # 2.3 10^3/ul (1.6-7.5); NEUTROPHILS % 45.8 % (39.0-77.0); PLATELET COUNT 122 10^3/UL (140-415); RED BLOOD COUNT 3.67 10^6/ul (4.70-6.10); RED CELL DISTRIBUTION WIDTH 12.6 % (11.5-14.5)
[2017-08-01 07:51] LABS: ALBUMIN 3.3 g/dl (3.3-4.9); ALBUMIN/GLOBULIN RATIO 1.17; BILIRUBIN,INDIRECT 0.5 mg/dl (0-1.1); BILIRUBIN,TOTAL 0.5 mg/dl (0.2-1.3); CALCIUM 8.9 mg/dl (8.4-10.2); CREATININE 0.67 mg/dl (0.61-1.24); MAGNESIUM 1.9 mg/dl (1.7-2.5); POTASSIUM 4.1 mmol/L (3.5-5.1); TOTAL PROTEIN 6.1 g/dl (6.1-8.1)
[2017-08-01 08:32] VITALS: PULSE 64
[2017-08-01] MEDS: MULTIVITAMINS THERAPEUTIC TAB PO SCH (10:01)
[2017-08-01] MEDS: TIOTROPIUM 18 MCG CAPSULE INHA DEV INH SCH (10:01)
[2017-08-01] MEDS: THIAMINE 100 MG TAB PO SCH (10:01)
[2017-08-01] MEDS: FOLIC ACID 1 MG TAB PO SCH (10:01)
[2017-08-01] MEDS ORDERED: FOLI-49 PO (10:27)
[2017-08-01] MEDS ORDERED: Thiamine PO (10:27)
[2017-08-01] MEDS ORDERED: CHLO25CA9 PO (10:27)
[2017-08-01] MEDS ORDERED: MULTI PO (10:27)
--- NOTE | 2017-08-01 10:36 | PDOCDIS ---
Discharge Instructions CONDITION Patient Condition: Stable HOME CARE INSTRUCTIONS: Special Diet: regular FOLLOW UP/APPOINTMENTS Follow-up Plan You need to stop drinking alcohol. Follow up with your regular doctor within 1 week ELIESER SWAN MD Aug 01, 2017 10:36
--- NOTE | 2017-08-01 10:38 | DS ---
Date/Time of Note Date/Time of Note DATE: 08/01/17 TIME: 10:37 Discharge Summary Admission/Discharge Info Admit Date/Time Jul 31, 2017 at 03:06 Discharge Date/Time Discharge Diagnosis alcoholism Patient Condition: Stable Consults none Procedures none Hx of Present Illness Chief complaint: Alcohol withdrawal symptoms This is a 57-year-old male being transferred from nursing facility for symptoms of alcohol withdrawal. Patient reports the last drink he had was approximately 3-4 days ago. He was experiencing some abdominal pain and nausea. Patient was admitted a few days ago in the hospital for pancreatitis, alcohol abuse. Current time patient denies any suicidal ideation or homicidal ideation. He denies any auditory or visual hallucinations. Allergies: NKDA Medications: See JAN Hospital Course Pt transferred from [facility] for insurance purposes. Per chart review, pt called 911 from home bc he was intoxicated. Transferred to [facility] for EtOH detox. EtOH level here on transfer negative. EtOH level 731pm at OSH 260 (on 07.30)-->down to zero here by 7am the next morning. (on 07.31) Pt started on librium taper, required minimal amount of supplemental Ativan. Pt ambulatory and requesting discharge 08.01. He was told repeatedly that he needs to stop drinking and is being discharged on continued librium taper. Pt with transaminitis improving, likely alcoholic hepatitis. Hep C sent but results not available at time of discharge pt with sutures in R forearm from injury last week which was stitched up at OSH. Pt advised to f/u with PCP next week to get sutures removed Home Meds Active Scripts [Thiamine] 100 MG TAB No Conflict Check, 100 MG PO DAILY for 30 Days, #30 Prov:ELIESER SWAN MD 08/01/17 Diphenoxylate HCl/Atropine (Lomotil 2.5-0.025 mg Tablet) 1 Each Tablet, 1 TAB PO QID Y for DIARRHEA, #10 TAB Prov:SUDHIR DINERO DO 07/28/17 Ondansetron (Ondansetron Odt) 4 Mg Tab.rapdis, 4 MG PO Q6H Y for NAUSEA AND/OR VOMITING, #10 TAB Prov:SUDHIR DINERO DO 07/28/17 Ciprofloxacin Hcl* (Ciprofloxacin Hcl*) 500 Mg Tablet, 500 MG PO BID for 7 Days , TAB Prov:SUDHIR DINERO DO 07/28/17 Hydrocodone/Acetaminophen ([place] 10-325 Tablet) 1 Each Tablet, 1 TAB PO Q6H Y for PAIN, #20 TAB Prov:SUDHIR DINERO DO 07/28/17 Discontinued Scripts Docusate Sodium* (Colace*) 100 Mg Capsule, 100 MG PO BID Y for CONSTIPATION, # 30 CAP Prov:DALEAmarilisLAURA 07/28/17 Follow-up Plan You need to stop drinking alcohol. Follow up with your regular doctor within 1 week to get the stitches taken out of your right arm Primary Care Provider Burt Bernabe Time spent on discharge: > 30 minutes Pending Labs Laboratory Tests Test 07/31/17 10:45 08/01/17 07:06 Urine Opiates Screen Positive (NEGATIVE) Urine Barbiturates Negative (NEGATIVE) Urine Amphetamines Screen Negative (NEGATIVE) Urine Benzodiazepines Screen Positive (NEGATIVE) Urine Cocaine Screen Negative (NEGATIVE) Urine Cannabinoids Negative (NEGATIVE) White Blood Count 5.010^3/ul (4.8-10.8) Red Blood Count 3.6710^6/ul (4.70-6.10) Hemoglobin 12.6g/dl (14.0-18.0) Hematocrit 35.9% (42.0-52.0) Mean Corpuscular Volume 97.8fl (82.0-101.0) Mean Corpuscular Hemoglobin 34.3pg (29.0-33.0) Mean Corpuscular Hemoglobin Concent 35.1g/dl (32.0-37.0) Red Cell Distribution Width 12.6% (11.5-14.5) Platelet Count 71740^3/UL (140-415) Mean Platelet Volume 9.0fl (7.4-10.4) Neutrophils % 45.8% (39.0-77.0) Lymphocytes % 36.4% (15.0-51.0) Monocytes % 13.0% (0.0-11.0) Eosinophils % 4.0% (0.0-7.0) Basophils % 0.6% (0.0-2.0) Nucleated Red Blood Cells % 0.0/100WBC (0.0-0.0) Neutrophils # 2.310^3/ul (1.6-7.5) Lymphocytes # 1.810^3/ul (0.8-2.9) Monocytes # 0.710^3/ul (0.3-0.9) Eosinophils # 0.210^3/ul (0.0-0.5) Basophils # 0.010^3/ul (0.0-0.1) Nucleated Red Blood Cells # 0.010^3/ul (0.0-0.0) Sodium Level 139mmol/L (135-144) Potassium Level 4.1mmol/L (3.5-5.1) Chloride Level 104mmol/L (97-110) Carbon Dioxide Level 31mmol/L (21-31) Anion Gap 8 (8-16) Blood Urea Nitrogen 11mg/dl (7-20) Creatinine 0.67mg/dl (0.61-1.24) Glucose Level 87mg/dl (70-220) Calcium Level 8.9mg/dl (8.4-10.2) Magnesium Level 1.9mg/dl (1.7-2.5) Total Bilirubin 0.5mg/dl (0.2-1.3) Direct Bilirubin 0.00mg/dl (0.00-0.20) Indirect Bilirubin 0.5mg/dl (0-1.1) Aspartate Amino Transf (AST/SGOT) 63IU/L (15-46) Alanine Aminotransferase (ALT/SGPT) 76IU/L (13-69) Alkaline Phosphatase 88IU/L (42-121) Total Protein 6.1g/dl (6.1-8.1) Albumin 3.3g/dl (3.3-4.9) Globulin 2.80g/dl (1.3-3.2) Albumin/Globulin Ratio 1.17 ELIESER SWAN MD Aug 01, 2017 10:38 2.80g/dl (1.3-3.2) Albumin/Globulin Ratio 1.17 ELIESER SWAN MD Aug 01, 2017 10:38
[2017-08-02] MEDS ORDERED: CHLORDIAZEPOXIDE 25 MG CAP PO SCH (05:00)
[2017-08-02] MEDS ORDERED: IBUP-1542 PO (15:10)
[2017-08-02] MEDS ORDERED: CEPH-443 PO (15:10)
== END 2017-08-01 12:15 | disposition home or self-care (01) | DRG 897 ==
LOC: E/R 02:51 → TEL 03:06
PROVIDERS: ADMIT Family Medicine; ATTEND Family Medicine
DX: F10.20 Alcohol dependence, uncomplicated (principal); F10.239 Alcohol dependence with withdrawal, unspecified; B19.20 Unspecified viral hepatitis C without hepatic coma; F91.9 Conduct disorder, unspecified; N40.0 Benign prostatic hyperplasia without lower urinary tract symptoms; S41.111D Laceration without foreign body of right upper arm, subsequent encounter; X58.XXXD Exposure to other specified factors, subsequent encounter; J45.909 Unspecified asthma, uncomplicated
CPT/HCPCS: 80053; 80306; 80307; 83036; 83690; 83735; 85025; 86803; J2060; J2270; J2405; J3370; J3411; J7030; J7050

== ENCOUNTER 2017-08-02 13:34 | Emergency (ER) | payer OTHER ==
[~2017-08-02] VITALS: Ht 170.2 cm; Wt 77.5 kg
[~2017-08-02 13:34] MED LIST changes: +CHLO25CA9 PO; -CIPR500T4 PO; -DIPH1TAB PO; +FOLI-49 PO; -HYDR-902 PO; +MULTI PO; -ONDA4TAB14 PO; +Thiamine PO
[2017-08-02 13:38] VITALS: Ht 170.2 cm; Wt 77.5 kg
[2017-08-02] MEDS ORDERED: IBUPROFEN 800 MG TAB PO ONE (14:30)
[2017-08-02] MEDS ORDERED: LORAZEPAM 1 MG TAB PO ONE (14:30)
--- NOTE | 2017-08-02 15:04 | RADRPT ---
PROCEDURE: Chest x-ray CLINICAL INDICATION: Shortness of breath TECHNIQUE: Chest single view COMPARISON: 07/28/2017 FINDINGS: The heart is normal in size. The pulmonary vessels are normal in caliber. Lung volumes are low wit h accentuation lung markings. No confluent pneumonia seen.. The costophrenic angles are sharp. The visualized bony thorax is unremarkable. IMPRESSION: No acute cardiopulmonary disease. Low lung volumes RPTAT: HH .Ismael Lott MD, MD Date Time Electronically viewed and signed by .Ismael Lott MD, on 08/02/2017 15:03 .W/
[2017-08-02] MEDS ORDERED: CEPH-443 PO (15:10)
[2017-08-02] MEDS ORDERED: IBUP-1542 PO (15:10)
--- NOTE | 2017-08-02 15:15 | ERD ---
ER Documentation Chief Complaint Date/Time DATE: 08/02/17 TIME: 15:15 Chief Complaint Complains of SOB Signed AMA yesterday HPI Patient is a 57-year-old male with alcohol abuse and anxiety who presents with shortness of breath and abdominal pain. He was recently admitted to the hospital for pancreatitis. He said that he has a right arm infection after he fell and cut his right arm and got stitches placed 4 days ago. He went to the [facility] emergency department today and was seen and did not want to wait so he left and his sister drove him to the emergency department at [facility]. He recently left AGAINST MEDICAL ADVICE from [facility] while he was admitted because he had to take care of his dogs. Upon review of old medical records the patient has multiple visits to the ER for alcohol abuse and other various complaints. Upon review of the emergency department information exchange system the patient has visits to 6 separate emergency departments. His primary doctor is Dr. Bernabe. ROS All systems reviewed and are negative except as per history of present illness. Medications Home Meds Active Scripts Ibuprofen* (Motrin*) 600 Mg Tab, 600 MG PO Q6H Y for PAIN AND OR ELEVATED TEMP, #30 TAB Prov:AL GUAMAN MD 08/02/17 Cephalexin* (Keflex*) 500 Mg Capsule, 500 MG PO QID for 7 Days, CAP Prov:AL GUAMAN MD 08/02/17 Chlordiazepoxide* (Chlordiazepoxide*) 25 Mg Capsule, 25 MG PO see below for 5 Days, #10 CAP Take 1 pill by mouth every 6 hours for one day (9.20) then 1 pill by mouth every eight hours for 1 day (9.21) then 1 pill by mouth every 12 hours daily for 1 day (9.22) then take the last pill on 9.23 Prov:ELIESER SWAN MD 08/01/17 [Thiamine] 100 MG TAB No Conflict Check, 100 MG PO DAILY for 30 Days, #30 Prov:ELIESER SWAN MD 08/01/17 Multivitamins* (Theragran*) 1 Tab Tab, 1 TAB PO DAILY for 30 Days, #30 TAB Prov:ELIESER SWAN MD 08/01/17 Folic Acid* (Folic Acid*) 1 Mg Tablet, 1 MG PO DAILY for 30 Days, #30 TAB Prov:ELIESER SWAN MD 08/01/17 Discontinued Scripts Diphenoxylate HCl/Atropine (Lomotil 2.5-0.025 mg Tablet) 1 Each Tablet, 1 TAB PO QID Y for DIARRHEA, #10 TAB Prov:SUDHIR DINERO DO 07/28/17 Ondansetron (Ondansetron Odt) 4 Mg Tab.rapdis, 4 MG PO Q6H Y for NAUSEA AND/OR VOMITING, #10 TAB Prov:SUDHIR DINERO DO 07/28/17 Ciprofloxacin Hcl* (Ciprofloxacin Hcl*) 500 Mg Tablet, 500 MG PO BID for 7 Days , TAB Prov:SUDHIR DINERO DO 07/28/17 Hydrocodone/Acetaminophen ([place] 10-325 Tablet) 1 Each Tablet, 1 TAB PO Q6H Y for PAIN, #20 TAB Prov:SUDHIR DINERO DO 07/28/17 Docusate Sodium* (Colace*) 100 Mg Capsule, 100 MG PO BID Y for CONSTIPATION, # 30 CAP Prov:LAURA STINSON 07/28/17 Allergies Allergies: Coded Allergies: No Known Drug Allergies (Verified Allergy, Unknown, 07/28/17) PMhx/Soc History of Surgery: No Hx Neurological Disorder: No Hx Respiratory Disorders: Yes (Asthma) Hx Cardiac Disorders: No Hx Psychiatric Problems: Yes (anxiety, depression, suicide) Hx Miscellaneous Medical Probl: No Hx Alcohol Use: Yes Hx Substance Use: Yes Hx Tobacco Use: Yes FmHx Family History: diabetes Physical Exam Vitals Vital Signs Date Time Temp Pulse Resp B/P Pulse Ox O2 Delivery O2 Flow Rate FiO2 08/02/17 13:38 98.3 115 20 139/75 98 Physical Exam Const: Moderate distress secondary to pain Head: Atraumatic Eyes: Normal Conjunctiva ENT: Normal External Ears, Nose and Mouth. Neck: Full range of motion..~ No meningismus. Resp: Clear to auscultation bilaterally Cardio: Regular rate and rhythm, no murmurs Abd: Soft, diffuse abdominal tenderness without rebound or guarding Skin: Incision to the right forearm has sutures intact, there is no pus from the wound, there is mild erythema without abscess Back: No midline or flank tenderness Ext: No cyanosis, or edema Neur: Awake and alert Psych: Normal Mood and Affect Results 24 hrs Current Medications Medications (Trade) Dose Ordered Sig/Ronaldo Route PRN Reason Start Time Stop Time Status Last Admin Dose Admin Lorazepam (Ativan) 1 mg ONCE ONCE PO 08/02/17 14:30 08/02/17 14:31 DC Ibuprofen (Motrin) 800 mg ONCE ONCE PO 08/02/17 14:30 08/02/17 14:31 DC Procedures/MDM Chest x-ray negative per radiology. EKG read by me: Rate/Rhythm: Tachycardia with right bundle branch block Intervals: Normal Impression: Sinus tachycardia with right bundle branch block Smoking Cessation Therapy: Pt. was lectured for greater than 3 minutes on the health risks of continued smoking and the benefits of cessation. Patient is a 57-year-old male with asthma and alcohol abuse who presents with multiple complaints. He has abdominal pain and shortness of breath. He is also complaining of his right arm infection. The patient had an EKG which does not show any signs of ischemia and a chest x-ray which shows no sign of pneumonia or pneumothorax. At this point I doubt acute coronary syndrome, pneumonia, pneumothorax, pulmonary embolism, or aortic dissection. I doubt pancreatitis at this time. I doubt other serious intra-abdominal process. I believe outpatient management is appropriate. The patient can return for any worsening symptoms. He was requesting narcotic medicines but I will not give him any narcotic medicines as I do believe there may be an element of drug- seeking behavior. Once I told him he was not getting narcotics he said that he was going to leave even though I was going to give him a prescription for his cellulitis. He says "forget it I'm leaving". Departure Diagnosis: Primary Impression: Cellulitis Site of cellulitis: extremity Site of cellulitis of extremity: lower extremity Laterality: right Qualified Code: L03.115 - Cellulitis of right lower extremity Additional Impression: Shortness of breath Condition: Fair Patient Instructions: Cellulitis Additional Instructions: Call your primary care doctor TOMORROW for an appointment during the next 1-2 days.See the doctor sooner or return here if your condition worsens before your appointment time. AL GUAMAN MD Aug 02, 2017 15:15
== END 2017-08-02 15:10 | disposition home or self-care (01) ==
LOC: E/R 13:34
DX: L03.115 Cellulitis of right lower limb (principal); J45.909 Unspecified asthma, uncomplicated; Z87.891 Personal history of nicotine dependence
CPT/HCPCS: 71010; 93005; Z7502

== ENCOUNTER 2017-08-06 17:31 | Inpatient (IN) | payer OTHER ==
[~2017-08-06] VITALS: Ht 177.8 cm; Wt 76.3 kg
[~2017-08-06 17:31] MED LIST changes: +CEPH-443 PO; +IBUP-1542 PO
--- NOTE | 2017-08-06 17:59 | ERA ---
ER Documentation Chief Complaint Date/Time DATE: 08/06/17 TIME: 17:56 Chief Complaint TRANSFER FROM [facility] FOR BRAIN BLEED HPI The patient is a 57-year-old male, presenting to the ER form [facility] because he fell and had suspected subarachnoid hemorrhage from the CAT scan that was done at [facility]. He was transferred to [facility] due to insurance, accepted by Dr. Latham. He is awake, alert, able to answer question appropriately, did not remember how he fell, complains of chronic shortness of breath. He denies he does not remember how he got a bruise on the left eye, denies neck pain, chest pain, abdominal pain, vomiting, dysuria, diarrhea, constipation. He smokes and drinks. Past medical history: Alcoholism, anxiety, asthma ROS All systems reviewed and are negative except as per history of present illness. Medications Home Meds Reported Medications Budesonide-Formoterol Fumarate* (Symbicort*) 160-4.5 Hfa.aer.ad, 2 PUFF INHALATION BID, #1 EACH 08/06/17 Albuterol Sulfate* (Ventolin HFA*) 18 Gm Hfa.aer.ad, 2 PUFF INHALATION Q6H, #1 INHALER 08/06/17 Alprazolam* (Xanax*) 2 Mg Tablet, 2 MG PO QHS Y for ANXIETY, TAB 08/06/17 Discontinued Scripts Ibuprofen* (Motrin*) 600 Mg Tab, 600 MG PO Q6H Y for PAIN AND OR ELEVATED TEMP, #30 TAB Prov:AL GUAMAN MD 08/02/17 Cephalexin* (Keflex*) 500 Mg Capsule, 500 MG PO QID for 7 Days, CAP Prov:AL GUAMAN MD 08/02/17 Chlordiazepoxide* (Chlordiazepoxide*) 25 Mg Capsule, 25 MG PO see below for 5 Days, #10 CAP Take 1 pill by mouth every 6 hours for one day (9.20) then 1 pill by mouth every eight hours for 1 day (9.21) then 1 pill by mouth every 12 hours daily for 1 day (9.22) then take the last pill on 9.23 Prov:ELIESER SWAN MD 08/01/17 [Thiamine] 100 MG TAB No Conflict Check, 100 MG PO DAILY for 30 Days, #30 Prov:ELIESER SWAN MD 08/01/17 Multivitamins* (Theragran*) 1 Tab Tab, 1 TAB PO DAILY for 30 Days, #30 TAB Prov:ELIESER SWAN MD 08/01/17 Folic Acid* (Folic Acid*) 1 Mg Tablet, 1 MG PO DAILY for 30 Days, #30 TAB Prov:ELIESER SWAN MD 08/01/17 Diphenoxylate HCl/Atropine (Lomotil 2.5-0.025 mg Tablet) 1 Each Tablet, 1 TAB PO QID Y for DIARRHEA, #10 TAB Prov:MARY DINEROSTOLOS A. DO 07/28/17 Ondansetron (Ondansetron Odt) 4 Mg Tab.rapdis, 4 MG PO Q6H Y for NAUSEA AND/OR VOMITING, #10 TAB Prov:LEPACHECOOSMARYSTOLOS A. DO 07/28/17 Ciprofloxacin Hcl* (Ciprofloxacin Hcl*) 500 Mg Tablet, 500 MG PO BID for 7 Days , TAB Prov:LEPACHECOOSMARYSTOLOS A. DO 07/28/17 Hydrocodone/Acetaminophen (Pioneer 10-325 Tablet) 1 Each Tablet, 1 TAB PO Q6H Y for PAIN, #20 TAB Prov:LEPACHECOOSMARYSTOLOS A. DO 07/28/17 Allergies Allergies: Coded Allergies: No Known Drug Allergies (Verified Allergy, Unknown, 08/06/17) PMhx/Soc History of Surgery: No Hx Neurological Disorder: No Hx Respiratory Disorders: Yes (Asthma) Hx Cardiac Disorders: No Hx Psychiatric Problems: Yes (anxiety, depression, suicide) Hx Miscellaneous Medical Probl: No Hx Alcohol Use: Yes Hx Substance Use: Yes Hx Tobacco Use: Yes Smoking Status: Current every day smoker Physical Exam Vitals Vital Signs Date Time Temp Pulse Resp B/P Pulse Ox O2 Delivery O2 Flow Rate FiO2 08/06/17 19:06 96 18 147/89 Room Air 08/06/17 17:35 98.6 94 18 126/83 96 Physical Exam Const: No acute distress. Head: Atraumatic. Eyes: Normal Conjunctiva. ENT: Normal External Ears, Nose and Mouth.Left inferior orbital ecchymosis, no nystagmus, no eye entrapment, Nasal bridge is edematous and tender Neck: Full range of motion. No meningismus. Resp: Clear to auscultation bilaterally. Cardio: Regular rate and rhythm. Abd: Soft, non distended, normal bowel sounds, non tender. Skin: No petechiae or rashes. Back: No midline or flank tenderness. Ext: No cyanosis, or edema. Neur: Awake and alert. No focal deficit Psych: Normal Mood and Affect. Result Diagram: 08/06/17 [id number]/[id number] Results 24 hrs Laboratory Tests Test 08/06/17 19:00 White Blood Count 6.710^3/ul Red Blood Count 4.0110^6/ul Hemoglobin 14.0g/dl Hematocrit 38.9% Mean Corpuscular Volume 97.0fl Mean Corpuscular Hemoglobin 34.9pg Mean Corpuscular Hemoglobin Concent 36.0g/dl Red Cell Distribution Width 13.1% Platelet Count 23455^3/UL Mean Platelet Volume 8.5fl Neutrophils % 59.2% Lymphocytes % 25.5% Monocytes % 11.6% Eosinophils % 2.1% Basophils % 1.3% Nucleated Red Blood Cells % 0.0/100WBC Neutrophils # 4.010^3/ul Lymphocytes # 1.710^3/ul Monocytes # 0.810^3/ul Eosinophils # 0.110^3/ul Basophils # 0.110^3/ul Nucleated Red Blood Cells # 0.010^3/ul Prothrombin Time 12.2Sec Prothrombin Time Ratio 1.0 INR International Normalized Ratio 0.91 Activated Partial Thromboplast Time 31.5Sec Sodium Level 135mmol/L Potassium Level 4.2mmol/L Chloride Level 99mmol/L Carbon Dioxide Level 28mmol/L Anion Gap 12 Blood Urea Nitrogen 14mg/dl Creatinine 0.73mg/dl Glucose Level 81mg/dl Calcium Level 8.4mg/dl Ethyl Alcohol Level < 10.0mg/dl Current Medications Medications (Trade) Dose Ordered Sig/Ronaldo Route PRN Reason Start Time Stop Time Status Last Admin Dose Admin Acetaminophen/ Hydrocodone Bitart (Pioneer (5/325)) 1 tab ONCE ONCE PO 08/06/17 20:00 08/06/17 20:01 DC Procedures/MDM Urine drug screen is pending [address] [address] Radiology Main Line: [phone] DIAGNOSTIC IMAGING REPORT Patient: JORGE MONTALVO : 1960 Age: 57 Sex: M [id number] DOS: 08/06/17 1748 Ordering MD: SHYAM GOMEZ MD Location: E/R Room/Bed: PROCEDURE: CT Brain without contrast. CLINICAL INDICATION: Had a TECHNIQUE: A CT of the brain was performed on a multidetector CT scanner utilizing axial imaging from the skull base through the vertex without IV contrast. Multiplanar reformatted images were made. Images were reviewed on a PACS workstation. The CTDIvol is 44 mGy and the DLP is 720 mGycm. Individualized dosed optimization technique was used for the performance of this exam. This included 1. Automated exposure control. 2. Adjustment of the mA and / or kV according to the patient's size. 3. The use of iterative reconstruction technique. COMPARISON: Head CT September 10, 2013 FINDINGS: There is no intracranial hemorrhage, mass effect, or midline shift. No extra- axial fluid collection is seen. There is moderate diffuse cerebral volume loss with sulcal and ventricular dilatation.. The density of the brain is normal, and the charlton white matter differentiation appears well-preserved. The visualized osseous structures are grossly unremarkable. See postsurgical changes are seen in the maxillary sinuses and there is opacification of the left ethmoid air cells. The frontal sinuses are atrophic. IMPRESSION: 1. No evidence of acute intracranial pathology. 2. Atrophy . .Jose Oliver MD, MD Date Time Electronically viewed and signed by .Jose Oliver MD, on 08/06/2017 19: 01 .A/ CC: SHYAM GOMEZ MD MEDICAL MAKING DECISION: The patient is a 57-year-old male, presenting with suspected subarachnoid hemorrhage following [facility] CAT scan, however the repeat CAT scan is negative for an acute abnormality acute nasal fracture. He was treated with Pioneer 5 mg p.o. for pain with good response The differential diagnoses considered include but are not limited to subarachnoid hemorrhage, occult trauma, CVA, meningitis, encephalitis, hypertension, tension, migraine, cluster, narcotic withdrawal, cervical spine disease. Departure Diagnosis: Primary Impression: Headache Additional Impression: Nasal fracture Condition: Stable Comments I discussed the findings with the patient. I discussed the patient with The on- call hospitalist Dr. Crawford at 7:25 PM. who was made aware of the lab, the treatment, the patient condition. The patient is admitted to Telemetry SHYAM GOMEZ MD Aug 06, 2017 17:59
--- NOTE | 2017-08-06 19:02 | RADRPT ---
PROCEDURE: CT Brain without contrast. CLINICAL INDICATION: Had a TECHNIQUE: A CT of the brain was performed on a multidetector CT scanner utilizing axial imaging f rom the skull base through the vertex without IV contrast. Multiplanar reformatted images were made . Images were reviewed on a PACS workstation. The CTDIvol is 44 mGy and the DLP is 720 mGycm. Individualized dosed optimization technique was used for the performance of this exam. This included 1. Automated exposure control. 2. Adjustment of the mA and / or kV according to the patient's size. 3. The use of iterative reconstruction technique. COMPARISON: Head CT September 10, 2013 FINDINGS: There is no intracranial hemorrhage, mass effect, or midline shift. No extra-axial fluid collection is seen. There is moderate diffuse cerebral volume loss with sulcal and ventricular dilatation.. Th e density of the brain is normal, and the charlton white matter differentiation appears well-preserved. The visualized osseous structures are grossly unremarkable. See postsurgical changes are seen in th e maxillary sinuses and there is opacification of the left ethmoid air cells. The frontal sinuses ar e atrophic. IMPRESSION: 1. No evidence of acute intracranial pathology. 2. Atrophy . .Jose Oliver MD, MD Date Time Electronically viewed and signed by .Jose Oliver MD, on 08/06/2017 19:01 .A/
[2017-08-06] MEDS ORDERED: ALPR2TAB PO (19:24)
[2017-08-06] MEDS ORDERED: BUDE6HFA INHALATION (19:25)
[2017-08-06] MEDS ORDERED: ALBU18HF INHALATION (19:25)
[2017-08-06 19:28] LABS: BASOPHIL # 0.1 10^3/ul (0.0-0.1); BASOPHILS % 1.3 % (0.0-2.0); EOSINOPHILS # 0.1 10^3/ul (0.0-0.5); EOSINOPHILS % 2.1 % (0.0-7.0); HEMATOCRIT 38.9 % (42.0-52.0); LYMPHOCYTES # 1.7 10^3/ul (0.8-2.9); LYMPHOCYTES % 25.5 % (15.0-51.0); MEAN CORPUSCULAR HEMOGLOBIN 34.9 pg (29.0-33.0); MEAN PLATELET VOLUME 8.5 fl (7.4-10.4); MONOCYTE # 0.8 10^3/ul (0.3-0.9); MONOCYTES % 11.6 % (0.0-11.0); NEUTROPHILS % 59.2 % (39.0-77.0); PLATELET COUNT 241 10^3/UL (140-415); RED BLOOD COUNT 4.01 10^6/ul (4.70-6.10); RED CELL DISTRIBUTION WIDTH 13.1 % (11.5-14.5); WHITE BLOOD COUNT 6.7 10^3/ul (4.8-10.8)
[2017-08-06 19:44] LABS: INR 0.91; PROTIME 12.2 Sec (12.2-14.2)
[2017-08-06 19:45] LABS: PARTIAL THROMBOPLASTIN TIME 31.5 Sec (25.0-35.0)
[2017-08-06 19:47] LABS: ANION GAP 12 (8-16); BLOOD UREA NITROGEN 14 mg/dl (7-20); CALCIUM 8.4 mg/dl (8.4-10.2); CARBON DIOXIDE 28 mmol/L (21-31); CHLORIDE 99 mmol/L (97-110); CREATININE 0.73 mg/dl (0.61-1.24); GLUCOSE 81 mg/dl (70-220); POTASSIUM 4.2 mmol/L (3.5-5.1); SODIUM 135 mmol/L (135-144)
[2017-08-06 19:52] LABS: ETHANOL < 10.0 mg/dl
[2017-08-06] MEDS ORDERED: HYDROCODONE/APAP (5/325) TAB PO ONE (20:00)
[2017-08-06] MEDS ORDERED: LORAZEPAM 1 MG TAB PO ONE (20:30)
[2017-08-07] VITALS (11 sets, daily range): BP systolic 115–141; BP diastolic 73–81; PULSE 66–94; RESP 18–20; Ht 177.8 cm; Wt 76.3 kg
--- NOTE | 2017-08-07 02:33 | RADRPT ---
PROCEDURE: XR ribs . CLINICAL INDICATION: Right rib pain TECHNIQUE: AP and oblique views of the right ribs were obtained. COMPARISON: Plain film chest dated 07/04/2014 FINDINGS: The bone mineralization is normal. There is no acute fracture or subluxation. Remote right rib fractures are seen, and appear healed. The soft tissues are unremarkable. IMPRESSION: No acute fracture. RPTAT: [facility] Physician Aydin Date Time Electronically viewed and signed by Amarilis Mancilla Physician on 08/07/2017 02:33 RS/
[2017-08-07] MEDS ORDERED: ONDANSETRON 4 MG INJ IV PRN (04:30)
[2017-08-07] MEDS: morphine 4 MG/ML VIAL IV PRN ×5 (06:39→21:56)
[2017-08-07 08:41] LABS: BASOPHIL # 0.1 10^3/ul (0.0-0.1); BASOPHILS % 0.8 % (0.0-2.0); EOSINOPHILS # 0.2 10^3/ul (0.0-0.5); EOSINOPHILS % 2.9 % (0.0-7.0); HEMATOCRIT 38.6 % (42.0-52.0); LYMPHOCYTES # 1.1 10^3/ul (0.8-2.9); MEAN CORPUSCULAR HEMOGLOBIN 35.4 pg (29.0-33.0); MEAN CORPUSCULAR HGB CONC 36.3 g/dl (32.0-37.0); MEAN CORPUSCULAR VOLUME 97.7 fl (82.0-101.0); MEAN PLATELET VOLUME 8.8 fl (7.4-10.4); MONOCYTE # 0.7 10^3/ul (0.3-0.9); NEUTROPHIL # 3.9 10^3/ul (1.6-7.5); PLATELET COUNT 231 10^3/UL (140-415); RED BLOOD COUNT 3.95 10^6/ul (4.70-6.10); WHITE BLOOD COUNT 5.9 10^3/ul (4.8-10.8)
[2017-08-07 09:09] LABS: ALBUMIN 3.7 g/dl (3.3-4.9); ALBUMIN/GLOBULIN RATIO 1.02; BILIRUBIN,INDIRECT 1.1 mg/dl (0-1.1); BILIRUBIN,TOTAL 1.1 mg/dl (0.2-1.3); CREATININE 0.85 mg/dl (0.61-1.24); MAGNESIUM 2.1 mg/dl (1.7-2.5); PHOSPHORUS 3.8 mg/dl (2.5-4.9); POTASSIUM 4.1 mmol/L (3.5-5.1); TOTAL PROTEIN 7.3 g/dl (6.1-8.1)
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
--- NOTE | 2017-08-07 15:15 | PN ---
Date/Time of Note Date/Time of Note DATE: 08/07/17 TIME: 15:01 Assessment/Plan VTE Prophylaxis VTE Prophylaxis Intervention: SCD's Assessment/Plan Assessment/Plan 57 years old male was recently admitted to [facility]. He fell in the parking lot right after he was released from [facility], that was about two weeks ago. He called the ambulance yesterday and took him to [facility] since he had shortness of breath and right lower chest pain. No cough or sputum. No fever or chills. A CT scan brain was done in [facility] with suspicious of subarachnoid hemorrhage. A repeated CT scan here in [facility]. 1. Asthma, stable, proventil prn 2. Suspect subarachnoid hemorrhage, MRI 3. Alcoholism, no withdrawal 4. Depression and anxiety disorder, Subjective 24 Hr Interval Summary Free Text/Dictation no shortness of breath, still has pain on right lower chest but less today Exam/Review of Systems Vital Signs Vitals Vital Signs Date Time Temp Pulse Resp B/P Pulse Ox O2 Delivery O2 Flow Rate FiO2 08/07/17 12:19 66 08/07/17 11:56 97.8 20 115/75 94 08/07/17 02:22 Room Air Exam Constitutional: alert, oriented, well developed Psych: nl mood/affect, no complaints Head: atraumatic, normocephalic Eyes: EOMI, nl conjunctiva, nl lids ENMT: nl external ears & nose, nl lips & teeth, nl nasal mucosa & septum Neck: non-tender, supple Respiratory: clear to auscultation, No congested cough, No crackles/rales, No diminished breath sounds, No intercostal retraction, No labored breathing, No normal air movement, No other, No respirations, No tactile fremitus, No wheezing Cardiovascular: nl pulses, regular rate and rhythm, No S3, No S4, No bruits, No diastolic murmur, No edema, No gallop, No irregular rhythm, No jugular venous distention (JVD), No murmurs/extra sounds, No other, No rub, No systolic murmur Gastrointestinal: nl liver, spleen, non-tender, soft, No ascites, No bowel sounds, No distended, No firm, No hepatomegaly, No mass , No other, No rebound or guarding, No splenomegaly, No surgical scars, No tender Musculoskeletal: nl extremities to inspection Extremities: normal pulses, No calf tenderness, No clubbing, No cyanosis, No edema, No other, No palpable cord, No pitting pedal edema, No tenderness Neurological: DIRECT MARKETING COORDINATOR II-XII intact, nl mental status, nl speech Skin: nl turgor Lymph: nl lymph nodes Results Result Diagram: 08/07/17 0756 08/07/17 0756 Results 24 hrs Laboratory Tests Test 08/06/17 19:00 08/07/17 07:56 White Blood Count 6.7 # 5.9 Red Blood Count 4.01 L 3.95 L Hemoglobin 14.0 14.0 Hematocrit 38.9 L 38.6 L Mean Corpuscular Volume 97.0 97.7 Mean Corpuscular Hemoglobin 34.9 H 35.4 H Mean Corpuscular Hemoglobin Concent 36.0 36.3 Red Cell Distribution Width 13.1 13.0 Platelet Count 241 # 231 Mean Platelet Volume 8.5 8.8 Neutrophils % 59.2 66.0 Lymphocytes % 25.5 18.0 Monocytes % 11.6 H 12.0 H Eosinophils % 2.1 2.9 Basophils % 1.3 0.8 Nucleated Red Blood Cells % 0.0 0.0 Neutrophils # 4.0 3.9 Lymphocytes # 1.7 1.1 Monocytes # 0.8 0.7 Eosinophils # 0.1 0.2 Basophils # 0.1 0.1 Nucleated Red Blood Cells # 0.0 0.0 Prothrombin Time 12.2 Prothrombin Time Ratio 1.0 INR International Normalized Ratio 0.91 Activated Partial Thromboplast Time 31.5 Sodium Level 135 135 Potassium Level 4.2 4.1 Chloride Level 99 98 Carbon Dioxide Level 28 33 H Anion Gap 12 8 Blood Urea Nitrogen 14 16 Creatinine 0.73 0.85 Glucose Level 81 124 # Calcium Level 8.4 9.0 Ethyl Alcohol Level < 10.0 Phosphorus Level 3.8 Magnesium Level 2.1 Total Bilirubin 1.1 Direct Bilirubin 0.00 Indirect Bilirubin 1.1 Aspartate Amino Transf (AST/SGOT) 57 H Alanine Aminotransferase (ALT/SGPT) 58 Alkaline Phosphatase 119 Total Protein 7.3 Albumin 3.7 Globulin 3.60 H Albumin/Globulin Ratio 1.02 Medications Medications Current Medications Acetaminophen (Tylenol Tab) 650 mg Q6H PRN PO PAIN AND OR ELEVATED TEMP; Start 08/07/17 at 04:30 Morphine Sulfate (morphine) 3 mg Q4H PRN IV ribs pain Last administered on 08/07t 14:41; Admin Dose 3 MG; Start 08/07/17 at 04:30 Ondansetron HCl (Zofran Inj) 4 mg Q6H PRN IV NAUSEA AND/OR VOMITING; Start at 04:30 REKHA HELLER MD Aug 07, 2017 15:12
[2017-08-07] MEDS ORDERED: ALBUTEROL 18 GM INHALER INH PRN (15:30)
[2017-08-07] MEDS: ACETAMINOPHEN 325 MG TAB PO PRN (23:32)
[2017-08-08] VITALS (8 sets, daily range): BP systolic 120–123; BP diastolic 70–80; PULSE 78–85; RESP 17–20
[2017-08-08] MEDS: morphine 4 MG/ML VIAL IV PRN ×3 (02:22→08:25)
[2017-08-08] MEDS: ACETAMINOPHEN 325 MG TAB PO PRN (04:04)
--- NOTE | 2017-08-08 06:45 | RADRPT ---
PROCEDURE: MRI Brain without contrast. CLINICAL INDICATION: Trauma, pain. TECHNIQUE: An MRI of the brain was performed utilizing the following sequences: Sagittal and axial T1 weighted, axial T2 weighted, axial diffusion weighted with ADC mapping, axial and coronal GRE, a nd axial FLAIR. COMPARISON: Brain CT 08/06/2017. FINDINGS: No diffusion weighted abnormalities are seen to suggest the presence of acute ischemia or recent inf arct. No hypointense signal abnormalities are seen on the GRE images to suggest the presence of blo od degradation products. There is no evidence of intracranial hemorrhage, mass effect, or midline s hift. No extra-axial fluid collections are seen. The ventricles and sulci are mildly enlarged indica tive of volume loss. There are mild scattered foci of T2 FLAIR hyperintensity in the periventricular, deep, and subcortic al white matter, which are nonspecific in etiology but likely reflect chronic small vessel ischemic changes. No abnormal intracranial vascular flow void is noted. The visualized paranasal sinuses demonstrate p ostsurgical changes of prior sinonasal surgery, otherwise mild scattered mucosal thickening. IMPRESSION: 1. No acute intracranial hemorrhage, infarction or mass. 2. Mild chronic small vessel ischemic changes. 3. Mild generalized cerebral volume loss. 4. Prior sided nasal sinus surgery. Mild scattered paranasal sinus disease. RPTAT: HH .Brad Gould MD, MD Date Time Electronically viewed and signed by .Brad Gould MD, MD on 08/08/2017 06:44 .N/
[2017-08-08] MEDS ORDERED: HYDROCODONE/APAP (5/325) TAB PO PRN (08:00)
[2017-08-08] MEDS ORDERED: ALPRAZOLAM 0.25 MG TAB PO PRN (08:00)
--- NOTE | 2017-08-08 13:05 | DS ---
Date/Time of Note Date/Time of Note DATE: 08/08/17 TIME: 13:00 Discharge Summary Admission/Discharge Info Admit Date/Time Aug 06, 2017 at 19:25 Discharge Date/Time Discharge Diagnosis 1. Asthma, stable, on inhaler 2. No evidence of subarachnoid hemorrhage on MRI and CT scan of brain 3. Alcoholism, no withdrawal 4. Depression and anxiety disorder, xanax prn, follow up with PCP for further management Patient Condition: Stable Hospital Course 57 years old male was recently admitted to [facility]. He fell in the parking lot right after he was released from [facility], that was about two weeks ago. He called the ambulance yesterday and took him to [facility] since he had shortness of breath and right lower chest pain. No cough or sputum. No fever or chills. A CT scan brain was done in [place] that with suspicious of subarachnoid hemorrhage. A repeated CT scan here in [facility]. To rule out possible of old intracranial bleeding, MRI was done that was negative for hemorrhage. For patient's shortness of breath, it could be asthma related but more likely anxiety related. Patient is on both inhalers and xanax prn. Home Meds Reported Medications Budesonide-Formoterol Fumarate* (Symbicort*) 160-4.5 Hfa.aer.ad, 2 PUFF INHALATION BID, #1 EACH 08/06/17 Albuterol Sulfate* (Ventolin HFA*) 18 Gm Hfa.aer.ad, 2 PUFF INHALATION Q6H, #1 INHALER 08/06/17 Alprazolam* (Xanax*) 2 Mg Tablet, 2 MG PO QHS Y for ANXIETY, TAB 08/06/17 Discontinued Scripts Ibuprofen* (Motrin*) 600 Mg Tab, 600 MG PO Q6H Y for PAIN AND OR ELEVATED TEMP, #30 TAB Prov:AL GUAMAN MD 08/02/17 Cephalexin* (Keflex*) 500 Mg Capsule, 500 MG PO QID for 7 Days, CAP Prov:AL GUAMAN MD 08/02/17 Chlordiazepoxide* (Chlordiazepoxide*) 25 Mg Capsule, 25 MG PO see below for 5 Days, #10 CAP Take 1 pill by mouth every 6 hours for one day (9.20) then 1 pill by mouth every eight hours for 1 day (9.21) then 1 pill by mouth every 12 hours daily for 1 day (9.22) then take the last pill on 9.23 Prov:ELIESER SWAN MD 08/01/17 [Thiamine] 100 MG TAB No Conflict Check, 100 MG PO DAILY for 30 Days, #30 Prov:ELIESER SWAN MD 08/01/17 Multivitamins* (Theragran*) 1 Tab Tab, 1 TAB PO DAILY for 30 Days, #30 TAB Prov:ELIESER SWAN MD 08/01/17 Folic Acid* (Folic Acid*) 1 Mg Tablet, 1 MG PO DAILY for 30 Days, #30 TAB Prov:ELIESER SWAN MD 08/01/17 Diphenoxylate HCl/Atropine (Lomotil 2.5-0.025 mg Tablet) 1 Each Tablet, 1 TAB PO QID Y for DIARRHEA, #10 TAB Prov:SUDHIR DINERO DO 07/28/17 Ondansetron (Ondansetron Odt) 4 Mg Tab.rapdis, 4 MG PO Q6H Y for NAUSEA AND/OR VOMITING, #10 TAB Prov:SUDHIR DINERO DO 07/28/17 Ciprofloxacin Hcl* (Ciprofloxacin Hcl*) 500 Mg Tablet, 500 MG PO BID for 7 Days , TAB Prov:SUDHIR DINERO DO 07/28/17 Hydrocodone/Acetaminophen ([place] 10-325 Tablet) 1 Each Tablet, 1 TAB PO Q6H Y for PAIN, #20 TAB Prov:SUDHIR DINERO DO 07/28/17 Primary Care Provider REKHA Alvarado MD Aug 08, 2017 13:05
== END 2017-08-08 14:05 | disposition home or self-care (01) | DRG 156 ==
LOC: E/R 17:31 → MS4 19:25
PROVIDERS: ADMIT Internal Medicine; ATTEND Internal Medicine
DX: S02.2XXA Fracture of nasal bones, initial encounter for closed fracture (principal); F32.9 Major depressive disorder, single episode, unspecified; F41.9 Anxiety disorder, unspecified; J45.909 Unspecified asthma, uncomplicated; F10.20 Alcohol dependence, uncomplicated; W18.30XA Fall on same level, unspecified, initial encounter; Y92.009 Unspecified place in unspecified non-institutional (private) residence as the place of occurrence of the external cause
CPT/HCPCS: 70450; 70551; 71100; 80048; 80053; 80306; 83735; 84100; 85025; 85610; 85730; J2270

== ENCOUNTER 2018-03-16 09:42 | Emergency (ER) | END 2018-03-16 14:15 | disposition home or self-care (01) ==

== ENCOUNTER 2018-05-18 03:58 | Inpatient (IN) | END 2018-05-18 09:38 | disposition left against medical advice (07) | DRG 641 ==

== ENCOUNTER 2018-09-02 08:44 | Emergency (ER) | END 2018-09-02 12:00 | disposition home or self-care (01) ==

== ENCOUNTER 2019-05-06 18:20 | Inpatient (IN) | payer OTHER ==
[~2019-05-06] VITALS: Ht 177.8 cm; Wt 79.4 kg
[~2019-05-06 18:20] MED LIST changes: +ALBU8.5H8 INH; +ALPR2TAB PO; +ATOR20TA38 PO; +BUDE6HFA INHALATION; -CEPH-443 PO; -CHLO25CA9 PO; +CYCL10TA7 PO; +ESOM20CA PO; -FOLI-49 PO; +HYDR-3980 PO; -IBUP-1542 PO; +MELO15TA30 PO; -MULTI PO; +PRED20TA PO; +TIOT18CA INHALATION; -Thiamine PO; +ZOLP10TA5 PO
[2019-05-06 20:32] VITALS: Ht 177.8 cm; Wt 79.4 kg
[2019-05-06 21:00] VITALS: BP 120/75; PULSE 68; RESP 20
[2019-05-06] MEDS ORDERED: NACL 0.9% 3 ML SYG IV SCH (21:00)
[2019-05-06] MEDS ORDERED: DOCUSATE SODIUM 100 MG CAP PO PRN (21:00)
[2019-05-06] MEDS ORDERED: ONDANSETRON 4 MG INJ IV PRN (21:00)
[2019-05-06] MEDS ORDERED: BISACODYL (EC) 5 MG TAB PO PRN (21:00)
--- NOTE | 2019-05-06 21:10 | HP ---
Date/Time of Note Date/Time of Note DATE: 05/06/19 TIME: 21:04 Assessment/Plan VTE Prophylaxis SCD applied (from Nsg): Yes Pharmacological prophylaxis: NA/contraindicated Pharm contraindication: low risk/ambulating Assessment/Plan Hospital Course This is a 58-year-old male being admitted to the med surge floor for but will transfer to tele: #1 Suspect syncope: Reports frequent falls and ambulatory dysfunction. Etiology possibly secondary to polypharmacy, EtOH use, versus arrhythmia versus orthostatic. It is unknown what the patient was unconscious or not. Patient does have benzodiazepines, Ambien and Flexeril on his med recon, will hold these. He also is alcohol drinker though he reports that he has not drink since Father's Day. Blood alcohol level is negative. At the current time we will hydrate the patient. Will provide banana bag. Thiamine folate multivitamin. Will check thiamine level, but a B12 and folate. PT evaluation. We will also check an echocardiogram and carotid Doppler to further evaluate. Will transfer the patient to telemetry for monitoring for arrhythmias. check orthostatics. order EKG. Consider cardiology consultation. #2 history of heavy alcohol use: Patient reports last drink was on Father's Day. Denies any hallucinations. No signs of nystagmus. IV thiamine x5 days. Folate and multivitamin. PRN Ativan for any agitation/withdrawal #3 Transaminitis: Suspect secondary to heavy alcohol use,, we will repeat liver function test, check right upper quadrant ultrasound, check hepatitis panel. #4 thrombocytopenia: Likely secondary to underlying liver disease from alcohol use. Will check right upper quadrant ultrasound, hepatitis panel. #5 epigastric pain: Hold NSAIDs, we will check stool occult blood, Pepcid IV, will consult GI #6 anxiety: Hold benzos given recent history of falls #7 asthma: Continue inhalers #8depression: We will hold benzos at the current time. Monitor closely. #9 DVT GI prophylaxis: SCDs, Pepcid Further treatment strategy will be implemented as per the clinical course. HPI/ROS Admit Date/Time Admit Date/Time May 06, 2019 at 20:16 Hx of Present Illness This is a 58-year-old male with a past medical history of hypertension diabetes and alcohol use who originally presented to an outside hospital via paramedics secondary to a mechanical fall. Patient reported that he had a ground-level fall at home. He had his hands outstretched when he fell. He reported feeling bilateral hand pain after falling. Patient reported that he has been having generalized weakness since Father's Day. He was not sure if he lost any consciousness. He was denying any alcohol use. He had a headache at that time which has since improved. His vitals on presentation were temperature 36.4 C heart rate 71 blood pressure 122/69 SPO2 96% on room air. Patient also was noted to have a dislocation of the right index finger. Digital block was performed in the finger was reduced and splinted. Upon my examination of the patient [facility] he does appear to be lethargic and tired but he is able to answer questions. He does have bruising surrounding his right eyelid. He reports that he has had a poor appetite over the last few days. He states that he has been losing his balance. He denies any burning or tingling or loss of sensation in his bilateral feet. Patient had a CT of the C-spine without contrast which showed no evidence of acute fracture of the cervical spine. Moderate multilevel spondylosis with mild to moderate multilevel central canal and moderate to severe multilevel foraminal stenosis. Straightening of the normal doses may be degenerative, positional related to muscle spasm. CT head without contrast showed no acute intracranial hemorrhage, transcortical infarction or mass-effect. Mild intracranial atherosclerosis and chronic small vessel ischemic changes. Mild generalized cerebral volume loss. Right greater than left frontal scalp swelling without underlying skull fracture. X-ray right index finger: Dislocation PIP, digital block was done and the finger was reduced and splint was placed. Pertinent laboratory findings from transfer facility please see chart for full details: CBC: White blood cell 5.3/hemoglobin 16.0/hematocrit 45.4/platelet count 101 BMP sodium 137/potassium 3.7/chloride 99/CO2 27/glucose 94/BUN 11/creatinine 0.76 ALT 204 AST 239 alk phos 94 troponin less than 0.029 ethanol level less than 5 Allergies: NKDA Medications: Albuterol Xanax Atorvastatin Flexeril Myrtle Meloxicam Prednisone Zolpidem Symbicort Nexium Spiriva ROS Const: As per HPI Eyes : No pain discharge or redness or change in visual acuity ENT: No pain, sore throat, congestion, congestion, dysphagia or discharge Respiratory: No shortness of breath, cough, sputum, wheezing, or pleuritic pain Cardiovascular: No chest pain, palpitation, PND, or edema GI : As per HPI Genitourinary: No dysuria, hematuria, flank pain , discharge or CVA tenderness Musculoskeletal: No joint pain, back pain, neck pain, restricted range of motion in neck or joints Skin: No rash, bruising or hives Neuro: As per HPI Endocrine: No polyuria, polydipsia, temperature intolerance Psych: No hallucination, depression, anxiety or suicidal ideation PMH/Family/Social Past Medical History Depression, anxiety, asthma, history of alcohol abuse Medications Current Medications IV Flush (NS 3 ml) 3 ml PER PROTOCOL IV ; Start 05/06/19 at 21:00; Status UNV Ondansetron HCl (Zofran Inj) 4 mg Q6H PRN IV NAUSEA/VOMITING; Start 05/06/19 at 21:00; Status UNV Docusate Sodium (Colace) 100 mg Q12H PRN PO .CONSTIPATION; Start 05/06/19 at 21:00; Status UNV Bisacodyl (Dulcolax) 5 mg DAILY PRN PO .CONSTIPATION; Start 05/06/19 at 21:00; Status UNV Coded Allergies: No Known Drug Allergies (Verified Allergy, Unknown, 03/16/18) Past Surgical History Right forearm laceration repair with sutures Family History Significant Family History: no pertinent family hx Social History Reports no recent usage of alcohol since Father's Day Smoking Status: Unknown if ever smoked Drug Use: none Exam/Review of Systems Exam Exam General: Disheveled appearing male lying in bed in no acute distress, lethargic but easily arousable and conversive HEENT: Atraumatic, normocephalic. The pupils are equal, round and reactive. Extraocular motor are intact Neck: Supple with full range of motion. No rigidity or meningismus Chest: Nontender Lungs: Clear to auscultation bilaterally no crackles rales or wheezing Heart: Normal S1-S2, Regular rhythm and rate. No murmur, S3, or S4 Abdomen: Soft , epigastric pain to palpation, nondistended , bowel sounds are present. No guarding no rebound tenderness , No masses or organomegaly. No costovertebral temporal angle mass Extremities: Right index finger wrapped Neurologic: Speech normal, lethargic but easily arousable. Cranial nerves II through XII intact, no nystagmus, gait not assessed. JESSICA,SHELBI May 06, 2019 21:10
[2019-05-06] MEDS ORDERED: MULTIVITAMINS 10 ML, THIAMINE 100 MG, FOLIC ACID 1 MG in SOD CHLORIDE 0.9% 1,000 ML IVPB SCH (21:30)
[2019-05-06] MEDS ORDERED: LORAZEPAM 2 MG INJ IV PRN (21:30)
[2019-05-07] VITALS (8 sets, daily range): BP systolic 114–127; BP diastolic 67–88; PULSE 59–78; RESP 18–22
[2019-05-07] MEDS ORDERED: ALBUTEROL HFA 8 GM INHALER INH PRN
[2019-05-07] MEDS ORDERED: SOD CHLORIDE 0.9% 1,000 ML IV SCH (07:00)
[2019-05-07] MEDS ORDERED: THIAMINE 100 MG TAB PO SCH (09:00)
[2019-05-07] MEDS ORDERED: FOLIC ACID 1 MG TAB PO SCH (09:00)
[2019-05-07] MEDS ORDERED: MULTIVITAMINS THERAPEUTIC TAB PO SCH (09:00)
[2019-05-07] MEDS: THIAMINE 200 MG INJ IV SCH (09:47)
[2019-05-07] MEDS: FLUTICASONE/VILANTEROL 200-25 INH DEVICE INH SCH (09:47)
[2019-05-07] MEDS: TIOTROPIUM 18 MCG CAPSULE INHA DEV INH SCH (09:47)
--- NOTE | 2019-05-07 13:38 | CONS ---
Assessment/Plan Assessment/Plan Hospital Course (Demo Recall) Summary Assessment and Plan: Assessment: Transaminitis with indirect hyperbilirubinemia Epigastric pain- improved Hepatitis C AB reactive- RNA pending History of excessive alcohol use Thrombocytopenia Questionable syncope status post multiple falls Anxiety Asthma Depression Plan: Patient declines EGD Continue PPI daily Will add Carafate 1 g 4 times daily Await results of RNA if positive patient to follow-up with GI for treatment of hepatitis C Monitor labs Patient seen in collaboration with Dr. Burgess CC: JOSE BURGESS MD ; Consultation Date/Type/Reason Admit Date/Time May 06, 2019 at 20:16 Date of Consultation: May 07, 2019 Type of Consult Gastroenterology Reason for Consultation Epigastric pain Transaminitis Date/Time of Note DATE: 05/07/19 TIME: 13:27 Hx of Present Illness This is a 58-year-old male past medical history of hypertension, diabetes, excessive alcohol use-strength was Mother's Day weekend. Who presented to an outside hospital secondary to falls with a dislocation of his right index finger, digital block was performed finger was reduced and splinted after being stabilized patient was transferred to the laboratory for further evaluation here with work-up patient found to have thrombocytopenia as well as transaminitis with indirect hyperbilirubinemia serology was obtained patient is positive for hepatitis B surface antibody and hepatitis B core total antibody as well as hepatitis C antibody currently RNA is pending liver ultrasound was obtained showing unremarkable right upper quadrant ultrasound. At time of evaluation patient complains of epigastric pain only with palpation, he denies nausea/vomiting, melena, hematemesis, pyrosis, or constipation. He has never had an upper endoscopy discussed possibilities to further evaluate epigastric pain with endoscopic intervention patient declines at this time. He also denies known history of hepatitis C, he denies history of drug use sexual exposure to hepatitis C or previous blood transfusions. Review of Systems: A 12 system, review was conducted and is negative except as noted in the HPI or here. Past Medical History Home Meds Active Scripts Esomeprazole Mag Trihydrate (Nexium) 20 Mg Capsule., 20 MG PO DAILY, #30 CAP Prov:TRI KEARNS MD 09/02/18 Prednisone* (Prednisone*) 20 Mg Tab, 40 MG PO DAILY for 4 Days, TAB Prov:TRI KEARNS MD 09/02/18 Albuterol Sulfate* (Proair HFA*) 8.5 Gm Hfa.aer.ad, 2 PUFF INH Q6H PRN for WHEEZING AND SOB, #1 INHALER Prov:TRI KEARNS MD 09/02/18 Prednisone* (Prednisone*) 20 Mg Tab, 40 MG PO DAILY for 4 Days, TAB Prov:TRI KEARNS MD 03/16/18 Albuterol Sulfate* (Proair HFA*) 8.5 Gm Hfa.aer.ad, 2 PUFF INH Q6H PRN for WHEEZING AND SOB, #1 INHALER Prov:TRI KEARNS MD 03/16/18 Reported Medications Budesonide-Formoterol Fumarate* (Symbicort*) 160-4.5 Hfa.aer.ad, 2 PUFF INHALATION BID, #1 EACH 03/16/18 Tiotropium [place]* (Spiriva*) 18 Mcg Cap.w.dev, 1 CAP INHALATION DAILY, #30 CAP 03/16/18 Hydrocodone/Acetaminophen ([place] 10-325 Tablet) 1 Each Tablet, 1 EACH PO NEEDED, TAB 03/16/18 Atorvastatin Calcium* (Atorvastatin Calcium*) 20 Mg Tablet, 20 MG PO QHS, #30 TAB 03/16/18 Meloxicam* (Mobic*) 15 Mg Tablet, 15 MG PO DAILY, #30 TAB 03/16/18 Zolpidem Tartrate* (Zolpidem Tartrate*) 10 Mg Tablet, 10 MG PO QHS PRN for INSO MNIA, #30 TAB 03/16/18 Cyclobenzaprine Hcl* (Cyclobenzaprine Hcl*) 10 Mg Tablet, 10 MG PO DAILY, #60 TAB 03/16/18 Alprazolam* (Xanax*) 2 Mg Tablet, 2 MG PO BID PRN for ANXIETY, TAB 03/16/18 Medications Current Medications IV Flush (NS 3 ml) 3 ml PER PROTOCOL IV ; Start 05/06/19 at 21:00 Ondansetron HCl (Zofran Inj) 4 mg Q6H PRN IV NAUSEA/VOMITING; Start 05/06/19 at 21:00 Docusate Sodium (Colace) 100 mg Q12H PRN PO .CONSTIPATION; Start 05/06/19 at 21:00 Bisacodyl (Dulcolax) 5 mg DAILY PRN PO .CONSTIPATION; Start 05/06/19 at 21:00 Albuterol (Ventolin Hfa) 2 puff Q6H PRN INH WHEEZING AND SOB; Start 05/07/19 at 00:00 Tiotropium [place] (Spiriva) 1 inh DAILY INH Last administered on 05/07/19at 09:47; Admin Dose 1 INH; Start 05/07/19 at 09:00 Fluticasone/ Vilanterol (Breo Ellipta 200-25 Mcg Inh) 1 inh DAILY INH Last administered on 05/07/19at 09:47; Admin Dose 1 INH; Start 05/07/19 at 09:00 Pantoprazole (Protonix Tab) 40 mg DAILY@06 PO ; Start 05/08/19 at 06:00 Thiamine HCl (Vitamin B1) 200 mg DAILY IV Last administered on 05/07/19at 09:47; Admin Dose 200 MG; Start 05/07/19 at 09:00; Stop 05/12/19 at 08:59 Allergies: Coded Allergies: No Known Drug Allergies (Verified Allergy, Unknown, 03/16/18) Social History Smoking Status: Unknown if ever smoked Drug Use: none Exam/Review of Systems Exam Vitals Vital Signs Date Temp Pulse Resp B/P (MAP) Pulse Ox O2 O2 Flow FiO2 Time Delivery Rate 05/07/19 73 12:00 05/07/19 98.0 20 119/74 98 Room Air 11:13 (89) Intake and Output 05/06/19 05/06/19 05/07/19 1515:00 23:00 07:00 IntakeIntake Total 1040 ml OutputOutput Total 1050 ml BalanceBalance -10 ml Exam PHYSICAL EXAMINATION: GENERAL: Alert & oriented x 3, in no acute distress SKIN: Ecchymosis to right eye HEAD: Normocephalic, atraumatic, no tenderness. EYES: Pupils equal reactive to light and accommodation, no discharge. EARS/NOSE AND THROAT: Ears normal, nose normal. NECK: Supple, no masses CHEST: Inspection within normal limits. CARDIOVASCULAR: Heart: Regular rate and rhythm RESPIRATORY: Lungs clear to auscultation GASTROINTESTINAL AND LIVER: Abdomen: Soft, epigastric tenderness, non-distended, no hernias, no masses, no organomegaly, no ascites, no guarding, no rebound tenderness, normoactive bowel sounds. Rectal: Deferred. GENITOURINARY: Male genitalia within normal limits. EXTREMITIES: No cyanosis, clubbing or edema, splint to index finger Results Result Diagram: 05/07/19 0452 05/07/19 0452 Results 24hrs Laboratory Tests Test 05/06/19 21:14 05/06/19 21:21 05/07/19 04:52 White Blood Count 6.3 # 5.9 Red Blood Count 4.55 #L 4.56 L Hemoglobin 15.2 # 15.0 Hematocrit 43.2 # 42.3 Mean Corpuscular Volume 94.9 92.8 Mean Corpuscular Hemoglobin 33.4 H 32.9 Mean Corpuscular Hemoglobin Concent 35.2 35.5 Red Cell Distribution Width 12.2 12.3 Platelet Count 103 #L 96 L Mean Platelet Volume 9.3 9.2 Immature Granulocytes % 0.600 H 0.500 H Neutrophils % 65.9 63.7 Lymphocytes % 22.9 24.3 Monocytes % 6.2 7.3 Eosinophils % 3.8 3.9 Basophils % 0.6 0.3 Nucleated Red Blood Cells % 0.0 0.0 Immature Granulocytes # 0.040 H 0.030 Neutrophils # 4.2 3.7 Lymphocytes # 1.4 1.4 Monocytes # 0.4 0.4 Eosinophils # 0.2 0.2 Basophils # 0.0 0.0 Nucleated Red Blood Cells # 0.0 0.0 Sodium Level 140 145 H Potassium Level 3.9 4.1 Chloride Level 102 106 Carbon Dioxide Level 32 H 30 Anion Gap 6 9 Blood Urea Nitrogen 16 16 Creatinine 0.78 0.72 Est Glomerular Filtrat Rate mL/min > 60 > 60 Glucose Level 81 83 Calcium Level 8.9 8.7 Magnesium Level 2.2 2.2 Total Bilirubin 1.1 1.3 Direct Bilirubin 0.00 0.00 Indirect Bilirubin 1.1 1.3 H Aspartate Amino Transf (AST/SGOT) 222 H 217 H Alanine Aminotransferase (ALT/SGPT) 221 H 213 H Alkaline Phosphatase 97 83 Total Protein 7.0 6.5 Albumin 3.9 3.7 Globulin 3.10 2.80 Albumin/Globulin Ratio 1.25 1.32 Vitamin B12 Level 407 Folate 8.4 Ethyl Alcohol Level < 10.0 H Hepatitis B Surface Antigen NEGATIVE Hepatitis B Surface Antibody POSITIVE H Hepatitis B Core Total Antibody REACTIVE H Hepatitis C Antibody REACTIVE H Hemoglobin A1c 4.6 Triglycerides Level 141 Cholesterol Level 198 LDL Cholesterol, Calculated 99 HDL Cholesterol 71 Cholesterol/HDL Ratio 2.7 Thyroid Stimulating Hormone (TSH) 1.800 Medications Medication Current Medications IV Flush (NS 3 ml) 3 ml PER PROTOCOL IV ; Start 05/06/19 at 21:00 Ondansetron HCl (Zofran Inj) 4 mg Q6H PRN IV NAUSEA/VOMITING; Start 05/06/19 at 21:00 Docusate Sodium (Colace) 100 mg Q12H PRN PO .CONSTIPATION; Start 05/06/19 at 21:00 Bisacodyl (Dulcolax) 5 mg DAILY PRN PO .CONSTIPATION; Start 05/06/19 at 21:00 Albuterol (Ventolin Hfa) 2 puff Q6H PRN INH WHEEZING AND SOB; Start 05/07/19 at 00:00 Tiotropium [place] (Spiriva) 1 inh DAILY INH Last administered on 05/07/19at 09:47; Admin Dose 1 INH; Start 05/07/19 at 09:00 Fluticasone/ Vilanterol (Breo Ellipta 200-25 Mcg Inh) 1 inh DAILY INH Last administered on 05/07/19at 09:47; Admin Dose 1 INH; Start 05/07/19 at 09:00 Pantoprazole (Protonix Tab) 40 mg DAILY@06 PO ; Start 05/08/19 at 06:00 Thiamine HCl (Vitamin B1) 200 mg DAILY IV Last administered on 05/07/19at 09:47; Admin Dose 200 MG; Start 05/07/19 at 09:00; Stop 05/12/19 at 08:59 SARINA HASSAN May 07, 2019 13:38
--- NOTE | 2019-05-07 16:44 | PN ---
Date/Time of Note Date/Time of Note DATE: 05/07/19 TIME: 16:41 Assessment/Plan VTE Prophylaxis Risk score (from Ns)>0 risk: 2 SCD applied (from [facility] [place] Yes Pharmacological prophylaxis: heparin Lines/Catheters IV Catheter Type (from [facility]): Peripheral IV Assessment/Plan Hospital Course Appears well, comfortable Echhymosis to R eye RRR CTAB Antalgic gait. CN II-XII intact. Strength intact throughout. SILT throughout No edema A/P: 58 yo male with h/o HCV Ab, etoh abuse in past presents with syncope Syncope: - Clearly orthostatic by history. This occurred when stood up from sleep. PR excluded. No further workup required Transaminitis: - HCV Ab is positive, awiait HCV PCR which was previuosly negative - Imaging normal - Further workup if PCR is negative Thrombocytopenia: - Concerning for portal hypertension but US shows normal liver - Perhpas etoh effect PT/OT evaluation Result Diagram: 05/07/19 0452 05/07/19 0452 Results 24hrs Laboratory Tests Test 05/06/19 21:14 05/06/19 21:21 05/07/19 04:52 White Blood Count 6.3 # 5.9 Red Blood Count 4.55 #L 4.56 L Hemoglobin 15.2 # 15.0 Hematocrit 43.2 # 42.3 Mean Corpuscular Volume 94.9 92.8 Mean Corpuscular Hemoglobin 33.4 H 32.9 Mean Corpuscular Hemoglobin Concent 35.2 35.5 Red Cell Distribution Width 12.2 12.3 Platelet Count 103 #L 96 L Mean Platelet Volume 9.3 9.2 Immature Granulocytes % 0.600 H 0.500 H Neutrophils % 65.9 63.7 Lymphocytes % 22.9 24.3 Monocytes % 6.2 7.3 Eosinophils % 3.8 3.9 Basophils % 0.6 0.3 Nucleated Red Blood Cells % 0.0 0.0 Immature Granulocytes # 0.040 H 0.030 Neutrophils # 4.2 3.7 Lymphocytes # 1.4 1.4 Monocytes # 0.4 0.4 Eosinophils # 0.2 0.2 Basophils # 0.0 0.0 Nucleated Red Blood Cells # 0.0 0.0 Sodium Level 140 145 H Potassium Level 3.9 4.1 Chloride Level 102 106 Carbon Dioxide Level 32 H 30 Anion Gap 6 9 Blood Urea Nitrogen 16 16 Creatinine 0.78 0.72 Est Glomerular Filtrat Rate mL/min > 60 > 60 Glucose Level 81 83 Calcium Level 8.9 8.7 Magnesium Level 2.2 2.2 Total Bilirubin 1.1 1.3 Direct Bilirubin 0.00 0.00 Indirect Bilirubin 1.1 1.3 H Aspartate Amino Transf (AST/SGOT) 222 H 217 H Alanine Aminotransferase (ALT/SGPT) 221 H 213 H Alkaline Phosphatase 97 83 Total Protein 7.0 6.5 Albumin 3.9 3.7 Globulin 3.10 2.80 Albumin/Globulin Ratio 1.25 1.32 Vitamin B12 Level 407 Folate 8.4 Ethyl Alcohol Level < 10.0 H Hepatitis B Surface Antigen NEGATIVE Hepatitis B Surface Antibody POSITIVE H Hepatitis B Core Total Antibody REACTIVE H Hepatitis C Antibody REACTIVE H Hemoglobin A1c 4.6 Triglycerides Level 141 Cholesterol Level 198 LDL Cholesterol, Calculated 99 HDL Cholesterol 71 Cholesterol/HDL Ratio 2.7 Thyroid Stimulating Hormone (TSH) 1.800 Subjective 24 Hr Interval Summary Free Text/Dictation Feels well No complaints Difficulty ambulating from chronic back pain Exam/Review of Systems Exam Vitals Vital Signs Date Temp Pulse Resp B/P (MAP) Pulse Ox O2 O2 Flow FiO2 Time Delivery Rate 05/07/19 97.6 63 22 127/78 96 Room Air 15:42 (94) Intake and Output 05/06/19 05/06/19 05/07/19 1515:00 23:00 07:00 IntakeIntake Total 1040 ml OutputOutput Total 1050 ml BalanceBalance -10 ml Results Results 24hrs Laboratory Tests Test 05/06/19 21:14 05/06/19 21:21 05/07/19 04:52 White Blood Count 6.3 # 5.9 Red Blood Count 4.55 #L 4.56 L Hemoglobin 15.2 # 15.0 Hematocrit 43.2 # 42.3 Mean Corpuscular Volume 94.9 92.8 Mean Corpuscular Hemoglobin 33.4 H 32.9 Mean Corpuscular Hemoglobin Concent 35.2 35.5 Red Cell Distribution Width 12.2 12.3 Platelet Count 103 #L 96 L Mean Platelet Volume 9.3 9.2 Immature Granulocytes % 0.600 H 0.500 H Neutrophils % 65.9 63.7 Lymphocytes % 22.9 24.3 Monocytes % 6.2 7.3 Eosinophils % 3.8 3.9 Basophils % 0.6 0.3 Nucleated Red Blood Cells % 0.0 0.0 Immature Granulocytes # 0.040 H 0.030 Neutrophils # 4.2 3.7 Lymphocytes # 1.4 1.4 Monocytes # 0.4 0.4 Eosinophils # 0.2 0.2 Basophils # 0.0 0.0 Nucleated Red Blood Cells # 0.0 0.0 Sodium Level 140 145 H Potassium Level 3.9 4.1 Chloride Level 102 106 Carbon Dioxide Level 32 H 30 Anion Gap 6 9 Blood Urea Nitrogen 16 16 Creatinine 0.78 0.72 Est Glomerular Filtrat Rate mL/min > 60 > 60 Glucose Level 81 83 Calcium Level 8.9 8.7 Magnesium Level 2.2 2.2 Total Bilirubin 1.1 1.3 Direct Bilirubin 0.00 0.00 Indirect Bilirubin 1.1 1.3 H Aspartate Amino Transf (AST/SGOT) 222 H 217 H Alanine Aminotransferase (ALT/SGPT) 221 H 213 H Alkaline Phosphatase 97 83 Total Protein 7.0 6.5 Albumin 3.9 3.7 Globulin 3.10 2.80 Albumin/Globulin Ratio 1.25 1.32 Vitamin B12 Level 407 Folate 8.4 Ethyl Alcohol Level < 10.0 H Hepatitis B Surface Antigen NEGATIVE Hepatitis B Surface Antibody POSITIVE H Hepatitis B Core Total Antibody REACTIVE H Hepatitis C Antibody REACTIVE H Hemoglobin A1c 4.6 Triglycerides Level 141 Cholesterol Level 198 LDL Cholesterol, Calculated 99 HDL Cholesterol 71 Cholesterol/HDL Ratio 2.7 Thyroid Stimulating Hormone (TSH) 1.800 Medications Medication Current Medications IV Flush (NS 3 ml) 3 ml PER PROTOCOL IV ; Start 05/06/19 at 21:00 Ondansetron HCl (Zofran Inj) 4 mg Q6H PRN IV NAUSEA/VOMITING; Start 05/06/19 at 21:00 Docusate Sodium (Colace) 100 mg Q12H PRN PO .CONSTIPATION; Start 05/06/19 at 21:00 Bisacodyl (Dulcolax) 5 mg DAILY PRN PO .CONSTIPATION; Start 05/06/19 at 21:00 Albuterol (Ventolin Hfa) 2 puff Q6H PRN INH WHEEZING AND SOB; Start 05/07/19 at 00:00 Tiotropium [place] (Spiriva) 1 inh DAILY INH Last administered on 05/07/19at 09:47; Admin Dose 1 INH; Start 05/07/19 at 09:00 Fluticasone/ Vilanterol (Breo Ellipta 200-25 Mcg Inh) 1 inh DAILY INH Last administered on 05/07/19at 09:47; Admin Dose 1 INH; Start 05/07/19 at 09:00 Pantoprazole (Protonix Tab) 40 mg DAILY@06 PO ; Start 05/08/19 at 06:00 Thiamine HCl (Vitamin B1) 200 mg DAILY IV Last administered on 05/07/19at 09:47; Admin Dose 200 MG; Start 05/07/19 at 09:00; Stop 05/12/19 at 08:59 Sucralfate (Carafate Susp) 1 gm AC MEALS AND BEDTIME PO ; Start 05/07/19 at 17:25 LUCIUS CHUN MD May 07, 2019 16:44
[2019-05-07] MEDS: SUCRALFATE (100 MG/ML) 10ML CUP PO SCH ×2 (17:42→20:53)
[2019-05-07] MEDS ORDERED: LORAZEPAM 2 MG INJ IV PRN (21:00)
[2019-05-07] MEDS ORDERED: ALPRAZOLAM 1 MG TAB PO PRN (21:00)
[2019-05-08] MEDS ORDERED: HALOPERIDOL 5 MG INJ IM ONE (00:30)
[2019-05-08] MEDS ORDERED: LORAZEPAM 2 MG INJ IV ONE (00:30)
[2019-05-08 00:56] VITALS: BP 118/75; PULSE 58; RESP 20
[2019-05-08 04:00] VITALS: BP 108/79; PULSE 70; RESP 18
[2019-05-08] MEDS ORDERED: PANTOPRAZOLE (EC) 40 MG TAB PO SCH (06:00)
[2019-05-08] MEDS: SUCRALFATE (100 MG/ML) 10ML CUP PO SCH ×2 (06:45→10:36)
[2019-05-08 07:46] VITALS: BP 111/73; PULSE 69; RESP 20
[2019-05-08] MEDS: FLUTICASONE/VILANTEROL 200-25 INH DEVICE INH SCH (08:54)
[2019-05-08] MEDS: THIAMINE 200 MG INJ IV SCH (08:54)
[2019-05-08] MEDS: TIOTROPIUM 18 MCG CAPSULE INHA DEV INH SCH (08:55)
--- NOTE | 2019-05-08 10:05 | RADRPT ---
Echocardiogram Report Patient Name: JORGE MONTALVOPatient ID: [id number] : 1960 (58y 10m)Study Date: 05/07/2019 7:08:45 AM Gender: [place] #: [id number] Tech: Perry Sam [facility] Location: 228 Ref.Physician: SHELBI LOPEZ Height(Cm): BSA: Weight(Kg): Quality: AdequateOrder Physician: SHELBI LOPEZ Account #: Procedures: Echocardiographic Report: Transthoracic echocardiogram with complete 2D, M-Mode, and doppler examination. Indications: Frequent falls. Measurements: 2D/M Mode Doppler Measurement Value Normal Range Measurement Value Normal Range LVIDd 2D 5.1 [ 4.2 - 5.8 ] cm AV Peak Travon 1.2 [ 100.0 - 170.0 ] cm/sec LVIDs 2D 3.1 [ 2.5 - 4.0 ] cm AV Peak PG 6.0 [ 2.0 - 9.0 ] mmHg LVPWd 2D 1.0 [ 0.6 - 1.0 ] cm LVOT Peak [place] 0.9 [ 70.0 - 110.0 ] cm/sec IVSd 2D 0.9 [ 0.6 - 1.0 ] cm LVOT Peak PG 3.0 [ 2.0 - 6.0 ] mmHg AoR Diam 2D 2.6 [ 2.6 - 3.4 ] cm MV E Peak [place]on 0.5 [ 60.0 - 130.0 ] cm/sec EDV 2D 124.0 [ 62.0 - 150.0 ] ml MV A Peak [place]on 0.6 [ 100.0 - 120.0 ] cm/sec ESV 2D 36.7 [ 21.0 - 61.0 ] ml MV E/A 0.9 [ 0.8 - 1.5 ] ratio EF 2D 70.4 [ 52.0 - 72.0 ] percent MV Decel Time 120 [ 104 - 258 ] msec LA Dimen 2D 3.0 [ 3.0 - 4.0 ] cm Lat E` Travon 0.1 [ 10.0 - 15.0 ] cm/sec Lateral E/E` 6.5 [ 1.0 - 2.0 ] ratio Med E` Travon 0.1 cm/sec MV E/A 0.9 [ 0.8 - 1.5 ] ratio Findings: Left Ventricle: Normal left ventricular systolic function. Normal left ventricular cavity size. Normal left ventricular wall thickness. Ejection fraction is visually estimated at 60 %. Tissue Doppler/Mitral Doppler indices are consistent with impaired relaxation (Stage I diastolic dysfunction). Right Ventricle: Normal right ventricular size. Normal right ventricular systolic function. Left Atrium: The left atrium is normal in size. Right Atrium: The right atrium is normal in size. Mitral Valve: Normal appearance and function of the mitral valve with trace physiologic regurgitation. Aortic Valve: No significant aortic stenosis or insufficiency. Aortic cusps appear mildly calcified. Tricuspid Valve: Normal appearance and function of the tricuspid valve with trace physiologic regurgitation. Normal right ventricular systolic pressure. Pulmonic Valve: Normal pulmonic valve appearance. Pericardium: Normal pericardium with no significant pericardial effusion. Aorta: Normal aortic root. IVC: Normal size and normal respiratory collapse consistent with normal right atrial pressure. Conclusions: Normal left ventricular systolic function. Normal left ventricular cavity size. Normal left ventricular wall thickness. Ejection fraction is visually estimated at 60 %. Tissue Doppler/Mitral Doppler indices are consistent with impaired relaxation (Stage I diastolic dysfunction). Normal appearance and function of the mitral valve with trace physiologic regurgitation. No significant aortic stenosis or insufficiency. Aortic cusps appear mildly calcified. Normal appearance and function of the tricuspid valve with trace physiologic regurgitation. Normal right ventricular systolic pressure. suboptimal study. Electronically Signed By: Shiva Smyth 2019-05-08 10:04:53 PDT
--- NOTE | 2019-05-08 11:08 | PN ---
Date/Time of Note Date/Time of Note DATE: 05/08/19 TIME: 11:07 Assessment/Plan VTE Prophylaxis Risk score (from Ns)>0 risk: 2 SCD applied (from Ns): Yes Lines/Catheters IV C[facility]from [facility] Saline Lock Assessment/Plan Result Diagram: 05/08/19 0616 05/08/19 0616 Results 24hrs Laboratory Tests Test 05/08/19 06:16 White Blood Count 5.4 Red Blood Count 4.33 L Hemoglobin 14.6 Hematocrit 41.0 L Mean Corpuscular Volume 94.7 Mean Corpuscular Hemoglobin 33.7 H Mean Corpuscular Hemoglobin Concent 35.6 Red Cell Distribution Width 12.0 Platelet Count 95 L Mean Platelet Volume 9.3 Immature Granulocytes % 0.400 Neutrophils % 49.4 Lymphocytes % 36.5 Monocytes % 8.8 Eosinophils % 4.5 Basophils % 0.4 Nucleated Red Blood Cells % 0.0 Immature Granulocytes # 0.020 Neutrophils # 2.7 Lymphocytes # 2.0 Monocytes # 0.5 Eosinophils # 0.2 Basophils # 0.0 Nucleated Red Blood Cells # 0.0 Sodium Level 140 Potassium Level 4.0 Chloride Level 105 Carbon Dioxide Level 28 Anion Gap 7 Blood Urea Nitrogen 12 Creatinine 0.74 Est Glomerular Filtrat Rate mL/min > 60 Glucose Level 93 Calcium Level 9.1 Total Bilirubin 1.2 Direct Bilirubin 0.00 Indirect Bilirubin 1.2 H Aspartate Amino Transf (AST/SGOT) 263 H Alanine Aminotransferase (ALT/SGPT) 258 H Alkaline Phosphatase 84 Total Protein 6.8 Albumin 3.8 Globulin 3.00 Albumin/Globulin Ratio 1.26 Exam/Review of Systems Exam Vitals Vital Signs Date Temp Pulse Resp B/P (MAP) Pulse Ox O2 O2 Flow FiO2 Time Delivery Rate 05/08/19 98.0 69 20 111/73 98 Room Air 07:46 (86) Intake and Output 05/07/19 05/07/19 05/08/19 1515:00 23:00 07:00 IntakeIntake Total 680 ml 1060 ml 400 ml OutputOutput Total 400 ml 1100 ml 600 ml BalanceBalance 280 ml -40 ml -200 ml Results Results 24hrs Laboratory Tests Test 05/08/19 06:16 White Blood Count 5.4 Red Blood Count 4.33 L Hemoglobin 14.6 Hematocrit 41.0 L Mean Corpuscular Volume 94.7 Mean Corpuscular Hemoglobin 33.7 H Mean Corpuscular Hemoglobin Concent 35.6 Red Cell Distribution Width 12.0 Platelet Count 95 L Mean Platelet Volume 9.3 Immature Granulocytes % 0.400 Neutrophils % 49.4 Lymphocytes % 36.5 Monocytes % 8.8 Eosinophils % 4.5 Basophils % 0.4 Nucleated Red Blood Cells % 0.0 Immature Granulocytes # 0.020 Neutrophils # 2.7 Lymphocytes # 2.0 Monocytes # 0.5 Eosinophils # 0.2 Basophils # 0.0 Nucleated Red Blood Cells # 0.0 Sodium Level 140 Potassium Level 4.0 Chloride Level 105 Carbon Dioxide Level 28 Anion Gap 7 Blood Urea Nitrogen 12 Creatinine 0.74 Est Glomerular Filtrat Rate mL/min > 60 Glucose Level 93 Calcium Level 9.1 Total Bilirubin 1.2 Direct Bilirubin 0.00 Indirect Bilirubin 1.2 H Aspartate Amino Transf (AST/SGOT) 263 H Alanine Aminotransferase (ALT/SGPT) 258 H Alkaline Phosphatase 84 Total Protein 6.8 Albumin 3.8 Globulin 3.00 Albumin/Globulin Ratio 1.26 Medications Medication Current Medications IV Flush (NS 3 ml) 3 ml PER PROTOCOL IV ; Start 05/06/19 at 21:00 Ondansetron HCl (Zofran Inj) 4 mg Q6H PRN IV NAUSEA/VOMITING; Start 05/06/19 at 21:00 Docusate Sodium (Colace) 100 mg Q12H PRN PO .CONSTIPATION; Start 05/06/19 at 21:00 Bisacodyl (Dulcolax) 5 mg DAILY PRN PO .CONSTIPATION; Start 05/06/19 at 21:00 Albuterol (Ventolin Hfa) 2 puff Q6H PRN INH WHEEZING AND SOB; Start 05/07/19 at 00:00 Tiotropium [place] (Spiriva) 1 inh DAILY INH Last administered on 05/08/19at 08:55; Admin Dose 1 INH; Start 05/07/19 at 09:00 Fluticasone/ Vilanterol (Breo Ellipta 200-25 Mcg Inh) 1 inh DAILY INH Last administered on 05/08/19at 08:54; Admin Dose 1 INH; Start 05/07/19 at 09:00 Pantoprazole (Protonix Tab) 40 mg DAILY@06 PO Last administered on 05/08/19at 06:45; Admin Dose 40 MG; Start 05/08/19 at 06:00 Thiamine HCl (Vitamin B1) 200 mg DAILY IV Last administered on 05/08/19at 08:54; Admin Dose 200 MG; Start 05/07/19 at 09:00; Stop 05/12/19 at 08:59 Sucralfate (Carafate Susp) 1 gm AC MEALS AND BEDTIME PO Last administered on 05/08/19at 10:36; Admin Dose 1 GM; Start 05/07/19 at 17:25 Alprazolam (Xanax) 2 mg BID PRN PO ANXIETY Last administered on 05/07/19at 22:13; Admin Dose 2 MG; Start 05/07/19 at 21:00 Lorazepam (Ativan) 1 mg Q12 PRN IV ANXIETY Last administered on 05/07/19at 20:52; Admin Dose 1 MG; Start 05/07/19 at 21:00 SARINA HASSAN May 08, 2019 11:08
[2019-05-08 11:20] VITALS: BP 105/73; PULSE 72; RESP 18
--- NOTE | 2019-05-08 14:29 | DS ---
Date/Time of Note Date/Time of Note DATE: 05/08/19 TIME: 14:28 Discharge Summary Admission/Discharge Info Admit Date/Time May 06, 2019 at 20:16 Discharge Date/Time May 08, 2019 at 12:25 Discharge Diagnosis Syncope Patient Condition: Stable Hospital Course The patient left the hospital against medical advice this AM A/P: 58 yo male with h/o HCV Ab, etoh abuse in past presents with syncope Syncope: - Clearly orthostatic by history. This occurred when stood up from sleep. [facility] excluded. No further workup required Transaminitis: - HCV Ab is positive, awiait HCV PCR which was previuosly negative - Imaging normal - Further workup if PCR is negative Thrombocytopenia: - Concerning for portal hypertension but US shows normal liver - Perhpas etoh effect PT/OT evaluation Home Meds Active Scripts Esomeprazole Mag Trihydrate (Nexium) 20 Mg Capsule.dr, 20 MG PO DAILY, #30 CAP Prov:TRI KEARNS MD 09/02/18 Prednisone* (Prednisone*) 20 Mg Tab, 40 MG PO DAILY for 4 Days, TAB Prov:TRI KEARNS MD 09/02/18 Albuterol Sulfate* (Proair HFA*) 8.5 Gm Hfa.aer.ad, 2 PUFF INH Q6H PRN for WHEEZING AND SOB, #1 INHALER Prov:TRI KEARNS MD 09/02/18 Prednisone* (Prednisone*) 20 Mg Tab, 40 MG PO DAILY for 4 Days, TAB Prov:TRI KEARNS MD 03/16/18 Albuterol Sulfate* (Proair HFA*) 8.5 Gm Hfa.aer.ad, 2 PUFF INH Q6H PRN for WHEEZING AND SOB, #1 INHALER Prov:TRI KEARNS MD 03/16/18 Reported Medications Budesonide-Formoterol Fumarate* (Symbicort*) 160-4.5 Hfa.aer.ad, 2 PUFF INHALAT ION BID, #1 EACH 03/16/18 Tiotropium [place]* (Spiriva*) 18 Mcg Cap.w.dev, 1 CAP INHALATION DAILY, #30 CAP 03/16/18 Hydrocodone/Acetaminophen ([place] 10-325 Tablet) 1 Each Tablet, 1 EACH PO NEEDED, TAB 03/16/18 Atorvastatin Calcium* (Atorvastatin Calcium*) 20 Mg Tablet, 20 MG PO QHS, #30 TAB 03/16/18 Meloxicam* (Mobic*) 15 Mg Tablet, 15 MG PO DAILY, #30 TAB 03/16/18 Zolpidem Tartrate* (Zolpidem Tartrate*) 10 Mg Tablet, 10 MG PO QHS PRN for INSOMNIA, #30 TAB 03/16/18 Cyclobenzaprine Hcl* (Cyclobenzaprine Hcl*) 10 Mg Tablet, 10 MG PO DAILY, #60 TAB 03/16/18 Alprazolam* (Xanax*) 2 Mg Tablet, 2 MG PO BID PRN for ANXIETY, TAB 03/16/18 Primary Care Provider Burt Bernabe Pending Labs Laboratory Tests Test 05/08/19 06:16 White Blood Count 5.4 10^3/ul (4.8-10.8) Red Blood Count 4.33 10^6/ul (4.70-6.10) Hemoglobin 14.6 g/dl (14.0-18.0) Hematocrit 41.0 % (42.0-52.0) Mean Corpuscular Volume 94.7 fl (82.0-101.0) Mean Corpuscular Hemoglobin 33.7 pg (29.0-33.0) Mean Corpuscular Hemoglobin Concent 35.6 g/dl (32.0-37.0) Red Cell Distribution Width 12.0 % (11.5-14.5) Platelet Count 95 10^3/UL (140-415) Mean Platelet Volume 9.3 fl (7.4-10.4) Immature Granulocytes % 0.400 % (0.001-0.429) Neutrophils % 49.4 % (39.0-77.0) Lymphocytes % 36.5 % (15.0-51.0) Monocytes % 8.8 % (0.0-11.0) Eosinophils % 4.5 % (0.0-7.0) Basophils % 0.4 % (0.0-2.0) Nucleated Red Blood Cells % 0.0 /100WBC (0.0-0.0) Immature Granulocytes # 0.020 10^3/ul (0.0-0.031) Neutrophils # 2.7 10^3/ul (1.6-7.5) Lymphocytes # 2.0 10^3/ul (0.8-2.9) Monocytes # 0.5 10^3/ul (0.3-0.9) Eosinophils # 0.2 10^3/ul (0.0-0.5) Basophils # 0.0 10^3/ul (0.0-0.1) Nucleated Red Blood Cells # 0.0 10^3/ul (0.0-0.0) Sodium Level 140 mmol/L (135-144) Potassium Level 4.0 mmol/L (3.5-5.1) Chloride Level 105 mmol/L (97-110) Carbon Dioxide Level 28 mmol/L (21-31) Anion Gap 7 (5-13) Blood Urea Nitrogen 12 mg/dl (7-20) Creatinine 0.74 mg/dl (0.61-1.24) Est Glomerular Filtrat Rate mL/min > 60 mL/min (>60) Glucose Level 93 mg/dl (70-220) Calcium Level 9.1 mg/dl (8.4-10.2) Total Bilirubin 1.2 mg/dl (0.2-1.3) Direct Bilirubin 0.00 mg/dl (0.00-0.20) Indirect Bilirubin 1.2 mg/dl (0-1.1) Aspartate Amino Transf (AST/SGOT) 263 IU/L (15-46) Alanine Aminotransferase (ALT/SGPT) 258 IU/L (13-69) Alkaline Phosphatase 84 IU/L (42-121) Total Protein 6.8 g/dl (6.1-8.1) Albumin 3.8 g/dl (3.3-4.9) Globulin 3.00 g/dl (1.3-3.2) Albumin/Globulin Ratio 1.26 LUCIUS CHUN MD May 08, 2019 14:29
--- NOTE | 2019-05-08 17:09 | RADRPT ---
Vent Rate: 65 bpm RR Interval: 916 msec ND Interval: 130 msec QRS Duration: 142 msec QT Interval: 424 msec QTC Interval: 443 msec P-R-T [place]: 72 - 60 - 53 degrees Sinus rhythm...normal P axis, V-rate 50- 99 Right bundle branch block...QRSd>120, terminal axis(90,270) Electronically Signed By: Angel Samano
== END 2019-05-08 12:25 | disposition left against medical advice (07) | DRG 312 ==
LOC: 2NE 20:16 → TEL 05-07 07:25
PROVIDERS: ADMIT Internal Medicine; ATTEND Internal Medicine
DX: I95.1 Orthostatic hypotension (principal); B19.10 Unspecified viral hepatitis B without hepatic coma; D69.6 Thrombocytopenia, unspecified; B19.20 Unspecified viral hepatitis C without hepatic coma; I10 Essential (primary) hypertension; E11.9 Type 2 diabetes mellitus without complications; F17.200 Nicotine dependence, unspecified, uncomplicated; R10.13 Epigastric pain; F41.9 Anxiety disorder, unspecified; J45.909 Unspecified asthma, uncomplicated; F32.9 Major depressive disorder, single episode, unspecified; F10.10 Alcohol abuse, uncomplicated; Y90.0 Blood alcohol level of less than 20 mg/100 ml; R74.0 Nonspecific elevation of levels of transaminase and lactic acid dehydrogenase [LDH]; Z79.4 Long term (current) use of insulin
CPT/HCPCS: 76705; 80053; 80061; 80307; 82306; 82607; 82746; 83036; 83735; 84425; 84443; 85025; 86038; 86255; 86704; 86706; 86709; 86803; 87340; 87522; 93005; 93306; 93880; 97162; 97167; J1630; J2060; J3411; J7030

== ENCOUNTER 2019-05-13 02:31 | Inpatient (IN) | payer OTHER ==
[~2019-05-13] VITALS: Ht 177.8 cm; Wt 77.0 kg
[2019-05-13 04:34] VITALS: BP 97/62; PULSE 73; RESP 18
[2019-05-13 04:39] VITALS: Ht 177.8 cm; Wt 77.0 kg
[2019-05-13] MEDS ORDERED: ALBUTEROL/IPRATROPIUM (NEB) 3 ML AMP HHN PRN (05:30)
[2019-05-13] MEDS ORDERED: ACETAMINOPHEN 325 MG TAB PO PRN (05:30)
[2019-05-13] MEDS ORDERED: HYDROCODONE/APAP (10/325) TAB PO PRN (05:30)
[2019-05-13] MEDS ORDERED: ZOLPIDEM 5 MG TAB PO PRN (05:30)
[2019-05-13] MEDS ORDERED: NACL 0.9% 3 ML SYG IV SCH (05:30)
[2019-05-13] MEDS ORDERED: NITROGLYCERIN (SL) 0.4 MG TAB SL PRN (05:30)
[2019-05-13] MEDS ORDERED: ALPRAZOLAM 1 MG TAB PO PRN (05:30)
[2019-05-13] MEDS ORDERED: ONDANSETRON 4 MG INJ IV PRN (05:30)
[2019-05-13] MEDS ORDERED: ALPR1TAB7 PO (05:53)
[2019-05-13] MEDS ORDERED: HYDR-3980 PO (05:53)
[2019-05-13] MEDS ORDERED: TIOT18CA INHALATION (05:53)
[2019-05-13] MEDS ORDERED: albuterol hfa INH (05:53)
[2019-05-13] MEDS ORDERED: OMEG1CAP30 PO (05:53)
[2019-05-13] MEDS ORDERED: CHOL100062 PO (05:53)
--- NOTE | 2019-05-13 06:49 | HP ---
Date/Time of Note Date/Time of Note DATE: 05/13/19 TIME: 06:44 Assessment/Plan VTE Prophylaxis Pharmacological prophylaxis: heparin Lines/Catheters IV C[facility]from [facility] Saline Lock Urinary Cath still in place: No Assessment/Plan Assessment/Plan 1. Status post fall: mild right periorbital ecchymosis and superficial lesion on the right cheek -I was told by the ER physician that head CT at outside facility negative for acute findings -Check orthostatics -A few days ago patient had a 2D echo and carotid which were negative -PT eval -Additional imaging as needed 2. Chest pain: Rule out ACS 3. History of alcohol abuse: EtOH level at outside facility negative monitor for any withdrawal symptoms 4. Depression: Continue home med 5. COPD: Supplemental oxygen. Continue bronchodilators and inhaled corticosteroids HPI/ROS Admit Date/Time Admit Date/Time May 13, 2019 at 04:21 Hx of Present Illness This is a 58-year-old male with a history of CHF, asthma, depression, alcohol abuse who initially presented on outside hospital complaining of chest pain and status post a fall with mild right periorbital ecchymosis and superficial lesion on the right cheek. Patient was transferred to [facility] for insurance reason. Patient is sleepy but arousable and answering questions. He said he was walking to the bathroom when he lost his balance and fell down. He said he was sleepy while he was walking. Denied loss of consciousness. He said that the last time he had to drink was 2 days ago (a can of beer, but he said half of it was spilled). Head CT at the outside hospital was reportedly negative for acute findings. He was noted to have unsteady gait. EtOH was negative. U-tox positive for benzos. PMH/Family/Social Past Medical History Medical History: other (See HPI) Medications Current Medications IV Flush (NS 3 ml) 3 ml PER PROTOCOL IV ; Start 05/13/19 at 05:30 Ondansetron HCl (Zofran Inj) 4 mg Q6H PRN IV NAUSEA/VOMITING; Start 05/13/19 at 05:30 Nitroglycerin (Nitroglycerin (Sl Tab) 0.4 Mg) 1 tab Q5M PRN SL .CHEST PAIN; Start 05/13/19 at 05:30 Acetaminophen (Tylenol Tab) 650 mg Q6H PRN PO .PAIN 1-3 OR TEMP; Start 05/13/19 at 05:30 Albuterol/ Ipratropium (Duoneb) 3 ml Q2H RESP THERAPY PRN HHN SHORTNESS OF BREATH; Start 05/13/19 at 05:30 Alprazolam (Xanax) 2 mg BID PRN PO ANXIETY; Start 05/13/19 at 05:30 Atorvastatin Calcium (Lipitor) 20 mg QHS PO ; Start 05/13/19 at 21:00 Cyclobenzaprine HCl (Flexeril) 10 mg DAILY PO ; Start 05/13/19 at 09:00 Acetaminophen/ Hydrocodone Bitart ([place] (10)) 1 tab Q4H PRN PO pain 5 - 10; Start 05/13/19 at 05:30 Meloxicam (Mobic) 15 mg DAILY PO ; Start 05/13/19 at 09:00 Prednisone (Prednisone) 40 mg DAILY PO ; Start 05/13/19 at 09:00 Tiotropium [place] (Spiriva) 18 inh DAILY INH ; Start 05/13/19 at 09:00 Zolpidem Tartrate (Ambien) 10 mg QHS PRN PO INSOMNIA; Start 05/13/19 at 05:30 Miscellaneous Information 2 puff BID INHALATION ; Start 05/13/19 at 09:00; Status UNV Miscellaneous Information 20 mg DAILY PO ; Start 05/13/19 at 09:00; Status UNV Coded Allergies: No Known Drug Allergies (Verified Allergy, Unknown, 03/16/18) Past Surgical History Past Surgical Hx: other (See HPI) Family History Significant Family History: no pertinent family hx Social History Alcohol Use: other (Drinks a few days a week) Smoking Status: Current every day smoker Drug Use: other Exam/Review of Systems Vital Signs Vitals Vital Signs Date Temp Pulse Resp B/P (MAP) Pulse Ox O2 O2 Flow FiO2 Time Delivery Rate 05/13/19 97.4 73 18 97/62 (74) 97 Room Air 04:34 Exam Constitutional: other (Sleepy, but arousable) Head: normocephalic, atraumatic Eyes: other (Mild right periorbital ecchymosis) ENMT: other (Small lesion on the right check) Respiratory: clear to auscultation, normal air movement Cardiovascular: regular rate and rhythm, nl pulses Gastrointestinal: soft, non-tender Extremities: normal pulses LA GONZALEZ MD May 13, 2019 06:49
[2019-05-13 07:27] VITALS: BP 101/64; PULSE 71; RESP 17
[2019-05-13] MEDS: PANTOPRAZOLE SODIUM 20 MG TABEC PO SCH ×2 (08:00→11:54)
[2019-05-13] MEDS ORDERED: MELOXICAM 15 MG TAB PO SCH (09:00)
[2019-05-13] MEDS ORDERED: TIOTROPIUM 18 MCG CAPSULE INHA DEV INH SCH (09:00)
[2019-05-13] MEDS ORDERED: predniSONE 20 MG TAB PO SCH (09:00)
[2019-05-13] MEDS ORDERED: CYCLOBENZAPRINE 10 MG TAB PO SCH (09:00)
--- NOTE | 2019-05-13 09:44 | PN ---
Date/Time of Note Date/Time of Note DATE: 05/13/19 TIME: 09:43 Assessment/Plan VTE Prophylaxis SCD applied (from Nsg): Yes Pharmacological prophylaxis: NA/contraindicated Pharm contraindication: thrombocytopenia Lines/Catheters IV Catheter Type (from Nrsg): Saline Lock Urinary Cath still in place: No Assessment/Plan Hospital Course SUBJECTIVE: The patient was found to be smoking history today morning and was caught in time. OBJECTIVE: Physical Exam General: Adequately build 58 year-old male lying in bed in no apparent distress who looks disheveled. HEENT: Normocephalic, atraumatic. Eyes: Anicteric sclerae, conjunctivae clear. Right periorbital ecchymosis. ENT: Nasal septum midline, oral mucosa is dry. Neck supple. Respiratory: Bilaterally diminished breath sounds. No use of accessory muscles of respiration. No adventitious breath sounds. Cardiovascular: S1, S2 heard. Regular rate and rhythm. Chest pain reproducible upon palpation. Abdomen: Soft, nontender, and nondistended. Bowel sounds positive in all 4 quadrants. Genitourinary: Deferred. Extremities: No cyanosis, no clubbing, no edema. Peripheral pulses palpable. Neurologic: The patient is somnolent. Wakes up to call and answers questions. Oriented to place and person. Skin: Normal skin turgor. Labs & Vitals per chart ASSESSMENT & PLAN 58-year-old male with comorbidities including alcoholism and positive hepatitis C antibody who went to an outside facility status post a reported ground-level fall, complaining of chest pain. The patient was transferred to [facility] for further evaluation because of insurance reasons. 1. Status post fall. Brain CT scan from the transferring facility negative. Urine drug screen from transferring facility positive for benzodiazepines. Obtain orthostatic vital signs. PT evaluation. 2. Chest pain. Atypical in nature. Reproducible with palpation. Most probably caused by the impact from recent fall. 2D echocardiogram done in April 2019 showing preserved left ejection fraction. 3. Alcoholism. Patient verbalized that last drink was 2 days ago. Monitor for any withdrawal. Start vitamin supplements. 4. COPD. Continue inhaled bronchodilators and anticholinergics. No evidence of any exacerbation. 5. Anxiety disorder. Continue PRN anxiolytics. 6. Pancytopenia. Most probably contributed by underlying alcoholism. Liver ultrasound on prior admission was negative for any cirrhosis. 7. Transaminitis. Most probably secondary to underlying alcoholism. Avoid hepatotoxic medications. 8. Fluids, electrolytes, and nutrition. Carbohydrate controlled diet. 9. DVT prophylaxis. Bilateral SCDs. 10. Plan. Continue telemetry monitoring. Await physical therapy evaluation. Await clinical improvement. The patient was seen in collaboration with Dr. Velarde. Result Diagram: 05/13/19 0651 05/13/19 0651 Results 24hrs Laboratory Tests Test 05/13/19 06:51 White Blood Count 4.4 L Red Blood Count 3.82 L Hemoglobin 12.9 L Hematocrit 35.3 L Mean Corpuscular Volume 92.4 Mean Corpuscular Hemoglobin 33.8 H Mean Corpuscular Hemoglobin Concent 36.5 Red Cell Distribution Width 12.5 Platelet Count 132 #L Mean Platelet Volume 8.8 Immature Granulocytes % 0.500 H Neutrophils % 47.4 Lymphocytes % 34.9 Monocytes % 15.6 H Eosinophils % 1.1 Basophils % 0.5 Nucleated Red Blood Cells % 0.0 Immature Granulocytes # 0.020 Neutrophils # 2.1 Lymphocytes # 1.5 Monocytes # 0.7 Eosinophils # 0.1 Basophils # 0.0 Nucleated Red Blood Cells # 0.0 Sodium Level 140 Potassium Level 3.7 Chloride Level 100 Carbon Dioxide Level 33 H Anion Gap 7 Blood Urea Nitrogen 8 Creatinine 0.79 Est Glomerular Filtrat Rate mL/min > 60 Glucose Level 95 Calcium Level 8.8 Magnesium Level 2.1 Total Bilirubin 1.4 H Direct Bilirubin 0.00 Indirect Bilirubin 1.4 H Aspartate Amino Transf (AST/SGOT) 70 H Alanine Aminotransferase (ALT/SGPT) 143 H Alkaline Phosphatase 99 Creatine Kinase 107 Creatine Kinase Index 1.2 Creatinine Kinase MB (Mass) 1.31 Troponin I < 0.012 Total Protein 6.9 Albumin 3.9 Globulin 3.00 Albumin/Globulin Ratio 1.30 Exam/Review of Systems Exam Vitals Vital Signs Date Temp Pulse Resp B/P (MAP) Pulse Ox O2 O2 Flow FiO2 Time Delivery Rate 05/13/19 97.4 71 17 101/64 95 07:27 (76) 05/13/19 Room Air 04:34 Results Results 24hrs Laboratory Tests Test 05/13/19 06:51 White Blood Count 4.4 L Red Blood Count 3.82 L Hemoglobin 12.9 L Hematocrit 35.3 L Mean Corpuscular Volume 92.4 Mean Corpuscular Hemoglobin 33.8 H Mean Corpuscular Hemoglobin Concent 36.5 Red Cell Distribution Width 12.5 Platelet Count 132 #L Mean Platelet Volume 8.8 Immature Granulocytes % 0.500 H Neutrophils % 47.4 Lymphocytes % 34.9 Monocytes % 15.6 H Eosinophils % 1.1 Basophils % 0.5 Nucleated Red Blood Cells % 0.0 Immature Granulocytes # 0.020 Neutrophils # 2.1 Lymphocytes # 1.5 Monocytes # 0.7 Eosinophils # 0.1 Basophils # 0.0 Nucleated Red Blood Cells # 0.0 Sodium Level 140 Potassium Level 3.7 Chloride Level 100 Carbon Dioxide Level 33 H Anion Gap 7 Blood Urea Nitrogen 8 Creatinine 0.79 Est Glomerular Filtrat Rate mL/min > 60 Glucose Level 95 Calcium Level 8.8 Magnesium Level 2.1 Total Bilirubin 1.4 H Direct Bilirubin 0.00 Indirect Bilirubin 1.4 H Aspartate Amino Transf (AST/SGOT) 70 H Alanine Aminotransferase (ALT/SGPT) 143 H Alkaline Phosphatase 99 Creatine Kinase 107 Creatine Kinase Index 1.2 Creatinine Kinase MB (Mass) 1.31 Troponin I < 0.012 Total Protein 6.9 Albumin 3.9 Globulin 3.00 Albumin/Globulin Ratio 1.30 Medications Medication Current Medications IV Flush (NS 3 ml) 3 ml PER PROTOCOL IV ; Start 05/13/19 at 05:30 Ondansetron HCl (Zofran Inj) 4 mg Q6H PRN IV NAUSEA/VOMITING; Start 05/13/19 at 05:30 Nitroglycerin (Nitroglycerin (Sl Tab) 0.4 Mg) 1 tab Q5M PRN SL .CHEST PAIN; Start 05/13/19 at 05:30 Acetaminophen (Tylenol Tab) 650 mg Q6H PRN PO .PAIN 1-3 OR TEMP; Start 05/13/19 at 05:30 Albuterol/ Ipratropium (Duoneb) 3 ml Q2H RESP THERAPY PRN HHN SHORTNESS OF BREATH; Start 05/13/19 at 05:30 Alprazolam (Xanax) 2 mg BID PRN PO ANXIETY; Start 05/13/19 at 05:30 Atorvastatin Calcium (Lipitor) 20 mg QHS PO ; Start 05/13/19 at 21:00 Cyclobenzaprine HCl (Flexeril) 10 mg DAILY PO Last administered on 05/13/19at 08:07; Admin Dose 10 MG; Start 05/13/19 at 09:00 Acetaminophen/ Hydrocodone Bitart ([place] (10/)) 1 tab Q4H PRN PO pain 5 - 10; Start 05/13/19 at 05:30 Meloxicam (Mobic) 15 mg DAILY PO Last administered on 05/13/19at 08:07; Admin Dose 15 MG; Start 05/13/19 at 09:00 Prednisone (Prednisone) 40 mg DAILY PO Last administered on 05/13/19at 08:08; Admin Dose 40 MG; Start 05/13/19 at 09:00 Tiotropium [place] (Spiriva) 18 inh DAILY INH Last administered on 05/13/19at 08:08; Admin Dose 18 INH; Start 05/13/19 at 09:00 Zolpidem Tartrate (Ambien) 10 mg QHS PRN PO INSOMNIA; Start 05/13/19 at 05:30 Arformoterol Tartrate ([place] (Neb)) 2 ml BID RESP THERAPY INH ; Start 05/13/19 at 10:00 Pantoprazole Sodium (Protonix) 20 mg DAILY@0600 PO ; Start 05/13/19 at 08:00 Budesonide (Pulmicort ([place]eb)) 0.5 mg Q12H RESP THERAPY INH Last administered on 05/13/19at 09:34; Admin Dose 0.5 MG; Start 05/13/19 at 10:00 LEIGHOTN KAUR NP May 13, 2019 09:44
[2019-05-13] MEDS ORDERED: ARFORMOTEROL TARTRATE 15MCG/2 ML AMP INH SCH (10:00)
[2019-05-13] MEDS ORDERED: BUDESONIDE (NEB) 0.5MG/2ML AMP INH SCH (10:00)
[2019-05-13 11:37] VITALS: BP 101/72; PULSE 75; RESP 18
[2019-05-13] MEDS ORDERED: THIAMINE 100 MG TAB PO SCH (12:00)
[2019-05-13] MEDS ORDERED: MULTIVITAMINS THERAPEUTIC TAB PO SCH (12:00)
[2019-05-13 14:50] VITALS: BP_SYST 110; BP_SYST 99; BP_DIAS 70; BP_DIAS 73; PULSE 67; PULSE 75; RESP 18
[2019-05-13 14:51] VITALS: BP 92/65; PULSE 84
[2019-05-13 19:19] VITALS: BP 105/68; PULSE 87; RESP 18
[2019-05-13] MEDS ORDERED: ATORVASTATIN 20 MG TAB PO SCH (21:00)
--- NOTE | 2019-05-14 10:32 | DS ---
Date/Time of Note Date/Time of Note DATE: 05/14/19 TIME: 10:32 Discharge Summary Admission/Discharge Info Admit Date/Time May 13, 2019 at 04:21 Discharge Date/Time May 13, 2019 at 19:48 Left AGAINST MEDICAL ADVICE Discharge Diagnosis 1. Status post fall. 2. Atypical chest pain. 3. Alcoholism. 4. COPD. 5. Anxiety disorder. 6. Pancytopenia. 7. Transaminitis. 8. Nicotine use. Patient Condition: Guarded Procedures Brain MRI IMPRESSION: Evaluation is mildly limited due to motion degradation. 1. No acute infarction or intracranial hemorrhage. 2. Mild central greater than peripheral cerebral volume loss. 3. Mild to moderate chronic microvascular ischemic changes. Hx of Present Illness This is a 58-year-old male with comorbidities including alcoholism and positive hepatitis C antibody who went to an outside facility status post a reported ground-level fall, complaining of chest pain. The patient was transferred to [facility] for further evaluation because of insurance reasons. Hospital Course The patient was admitted to inpatient setting. The patient was monitored on continuous telemetry. Patient had a reported fall. CT scan of the brain from the transferring facility was negative. The patient underwent a brain MRI that was negative for any acute findings. Physical therapy evaluation was ordered. Patient's chest pain was atypical in nature. The patient's chest pain was reproducible with palpation. The chest pain could have been most probably caused by the impact to the chest wall from the recent fall. The patient under went a 2D echocardiogram on his recent visit in April 2019 that was showing preserved left ventricular ejection fraction. Therefore, no repeat 2D echocardiogram was done on this patient. The patient is a current alcoholic. The patient verbalized that his last drink was approximately 2 days ago. He was closely monitored for any alcohol withdrawal symptoms. The patient was maintained on vitamin supplements. He has underlying COPD. He was maintained on inhaled bronchodilators and anticholinergics. He did not have any evidence of COPD exacerbation. He has anxiety disorder. He was maintained on anxiolytics for the same. The patient has underlying pancytopenia, most probably contributed by underlying alcoholism. The patient had a liver ultrasound on his prior admission to [facility] that was negative for any cirrhosis. The patient was noticed to have transaminitis, most probably secondary to underlying alcoholism. Hepatotoxic drugs were avoided on this patient. He is also a current nicotine user. He was advised on cessation. He was offered a nicotine pachg, but he refused. On 05/13/2019, the patient expressed interest that he wanted to leave the hospital. He was instructed on the consequences of leaving the hospital AGAINST MEDICAL ADVICE including the possibility of . Nevertheless, the patient left the hospital AGAINST MEDICAL ADVICE. Please note that the patient also left the hospital AGAINST MEDICAL ADVICE on his previous hospitalization to [facility] in April 2019. No outpatient follow-up could be confirmed since the patient left the hospital against medical advice. The patient was seen in collaboration with Dr. Velarde. Home Meds Active Scripts Esomeprazole Mag Trihydrate (Nexium) 20 Mg Capsule., 20 MG PO DAILY, #30 CAP Prov:TRI KEARNS MD 09/02/18 Prednisone* (Prednisone*) 20 Mg Tab, 40 MG PO DAILY for 4 Days, TAB Prov:TRI KEARNS MD 09/02/18 Albuterol Sulfate* (Proair HFA*) 8.5 Gm Hfa.aer.ad, 2 PUFF INH Q6H PRN for WHEEZING AND SOB, #1 INHALER Prov:TRI KEARNS MD 09/02/18 Prednisone* (Prednisone*) 20 Mg Tab, 40 MG PO DAILY for 4 Days, TAB Prov:TRI KEARNS MD 03/16/18 Albuterol Sulfate* (Proair HFA*) 8.5 Gm Hfa.aer.ad, 2 PUFF INH Q6H PRN for WHEEZING AND SOB, #1 INHALER Prov:TRI KEARNS MD 03/16/18 Reported Medications Hydrocodone/Acetaminophen ([place] 10-325 Tablet) 1 Each Tablet, 1 EACH PO Q6 PRN for PAIN, TAB 05/13/19 [place]-3 Fatty Acids/Fish Oil ([place] 3 Fish Oil Softgel) 1 Each Capsule., PO 05/13/19 Tiotropium [place]* (Spiriva*) 18 Mcg Cap.w.dev, 1 CAP INHALATION DAILY, #30 CAP 05/13/19 [albuterol hfa] No Conflict Check, 90 MCG INH QID PRN for WHEEZING 05/13/19 Cholecalciferol* (Vitamin D3*) 1,000 Unit Tablet, 2000 UNIT PO DAILY, TAB 05/13/19 Alprazolam* (Alprazolam*) 1 Mg Tablet, 2 MG PO BID PRN for ANXIETY, TAB 05/13/19 Budesonide-Formoterol Fumarate* (Symbicort*) 160-4.5 Hfa.aer.ad, 2 PUFF INHALATION BID, #1 EACH 03/16/18 Tiotropium [place]* (Spiriva*) 18 Mcg Cap.w.dev, 1 CAP INHALATION DAILY, #30 CAP 03/16/18 Hydrocodone/Acetaminophen ([place] 10-325 Tablet) 1 Each Tablet, 1 EACH PO NEEDED, TAB 03/16/18 Atorvastatin Calcium* (Atorvastatin Calcium*) 20 Mg Tablet, 20 MG PO QHS, #30 TAB 03/16/18 Meloxicam* (Mobic*) 15 Mg Tablet, 15 MG PO DAILY, #30 TAB 03/16/18 Zolpidem Tartrate* (Zolpidem Tartrate*) 10 Mg Tablet, 10 MG PO QHS PRN for INSOMNIA, #30 TAB 03/16/18 Cyclobenzaprine Hcl* (Cyclobenzaprine Hcl*) 10 Mg Tablet, 10 MG PO DAILY, #60 TAB 03/16/18 Alprazolam* (Xanax*) 2 Mg Tablet, 2 MG PO BID PRN for ANXIETY, TAB 03/16/18 Primary Care Provider Burt Bernabe Pending Labs Laboratory Tests Test 05/13/19 11:02 Creatine Kinase 98 IU/L (23-200) Creatine Kinase Index 1.0 Creatinine Kinase MB (Mass) 0.95 ng/ml (0.0-2.4) Troponin I < 0.012 ng/ml (0.000-0.120) LEIGHTON KAUR NP May 14, 2019 10:32
== END 2019-05-13 19:48 | disposition left against medical advice (07) | DRG 313 ==
LOC: TEL 04:21
PROVIDERS: ADMIT Internal Medicine; ATTEND Internal Medicine
DX: R07.89 Other chest pain (principal); D61.818 Other pancytopenia; F10.20 Alcohol dependence, uncomplicated; J44.9 Chronic obstructive pulmonary disease, unspecified; F41.9 Anxiety disorder, unspecified; S00.11XA Contusion of right eyelid and periocular area, initial encounter; W19.XXXA Unspecified fall, initial encounter; F32.9 Major depressive disorder, single episode, unspecified; Z72.0 Tobacco use
CPT/HCPCS: 70551; 80053; 82550; 82553; 83735; 84484; 85025; 94640; 94664; 97161; J7512